=== PATIENT | male | born 1995 | race African-American/Black ===

== ENCOUNTER 2018-03-04 18:51 | Emergency (ER) | payer SELFPAY ==
[2018-03-04] MEDS ORDERED: Ondansetron INJ* 2 MG/ML VIAL IV ONE (19:13)
[2018-03-04] MEDS ORDERED: NS 0.9% 1000 ML* 1,000 ML IV ONE (19:13)
[2018-03-04 19:46] LABS: ABS Basophils 0 10^3/ul (0-0.2); ABS Eosinophils 0 10^3/ul (0-0.6); ABS Lymphocytes 1.1 10^3/ul (1.0-4.8); ABS Monocytes 0.4 10^3/ul (0-0.8); ABS Neutrophils 4.8 10^3/ul (1.5-7.7); ABS Nucleated RBC 0 10^3/ul; Eosinophil % 0 % (0-6); Hematocrit 40 % (42-52); Hemoglobin 13.9 g/dl (14.0-18.0); Lymphocyte % 17.9 % (25-47); Mean Corpuscular HGB Conc 35 g/dl (31-36); Mean Corpuscular Hemoglobin 32 pg (27-31); Mean Corpuscular Volume 91 fL (80-94); Mean Platelet Volume 7.3 fL (7.4-10.4); Nucleated Red Blood Cells % 0; Platelet Count 242 10^3/ul (150-450); Red Blood Count 4.39 10^6/ul (4.00-5.40); Red Cell Distribution Width 13 % (10.5-15); White Blood Count 6.4 10^3/ul (3.5-10.8)
[2018-03-04 20:05] LABS: EGFR Non-African American 132.8 (>60)
--- NOTE | 2018-03-04 20:31 | ED ---
Psychiatric Complaint - HPI Summary HPI Summary: Patient is a 22-year-old male who presents emergency department for a psychiatric evaluation. Patient states he has been drinking alcohol heavily since Sunday and has been having thoughts to harm himself. Patient is a student [employer]. Patient states he is estranged from his family and felt that this week with the holidays coming up. Patient states that he is in his dormitory by himself at school since everyone 1 home for the holiday. Patient states he took 4 extra strength Tylenol this morning around 8:00 with hopes to kill himself. Patient also complains of chest discomfort today. He has no past medical history. Symptoms are moderate in severity. No current modifying factors. Patient denies other drug use today. - History Of Current Complaint Chief Complaint: EDMentalHealth Time Seen by Provider: 03/04/18 18:59 Hx Obtained From: Patient - Allergies/Home Medications Allergies/Adverse Reactions: Allergies Allergy/AdvReac Type Severity Reaction Status Date / Time No Known Allergies Allergy Verified 03/04/18 19:25 Home Medications: Home Medications NK [No Home Medications Reported] 03/04/18 [History Confirmed 03/04/18] PMH/Surg Hx/FS Hx/Imm Hx Previously Healthy: Yes Infectious Disease History: No Infectious Disease History: Denies: Traveled Outside the US in Last 30 Days - Social History Occupation: Student Lives: Dormitory/Roommates Alcohol Use: Weekly Substance Use Type: Reports: None Smoking Status (MU): Never Smoked Tobacco Review of Systems Constitutional: Negative Negative: Fever, Chills Eyes: Negative ENT: Negative Positive: Chest Pain Respiratory: Negative Positive: Abdominal Pain, Nausea. Negative: Vomiting Neurological: Negative Positive: Depressed All Other Systems Reviewed And Are Negative: Yes Physical Exam Triage Information Reviewed: Yes Vital Signs On Initial Exam: Initial Vitals Temp Pulse Resp BP Pulse Ox 98.1 F 85 16 124/65 99 03/04/18 18:52 03/04/18 18:52 03/04/18 18:52 03/04/18 18:52 03/04/18 18:52 Vital Signs Reviewed: Yes Appearance: Positive: Well-Appearing - Pt. sitting up in bed in NAD. Cooperative. Skin: Positive: Warm, Dry Head/Face: Positive: Normal Head/Face Inspection Eyes: Positive: Normal, EOMI Neck: Positive: Supple Respiratory/Lung Sounds: Positive: Clear to Auscultation, Breath Sounds Present Cardiovascular: Positive: Normal, RRR Abdomen Description: Positive: Nontender, Soft Neurological: Positive: Normal, Alert, Oriented to Person Place, Time, CN Intact II-III Psychiatric: Positive: Depressed Diagnostics - Vital Signs Vital Signs Temp Pulse Resp BP Pulse Ox 03/04/18 20:00 18 03/04/18 19:47 17 135/80 03/04/18 19:17 97 21 135/76 100 03/04/18 18:52 98.1 F 85 16 124/65 99 - Laboratory Lab Results: Lab Results 03/04/18 03/04/18 Range/Units 19:40 19:40 WBC 6.4 (3.5-10.8) 10^3/ul RBC 4.39 (4.00-5.40) 10^6/ul Hgb 13.9 L (14.0-18.0) g/dl Hct 40 L (42-52) % MCV 91 (80-94) fL MCH 32 H (27-31) pg MCHC 35 (31-36) g/dl RDW 13 (10.5-15) % Plt Count 242 (150-450) 10^3/ul MPV 7.3 L (7.4-10.4) fL Neut % (Auto) 75.8 (38-83) % Lymph % (Auto) 17.9 L (25-47) % [place] % (Auto) 5.9 (0-7) % Eos % (Auto) 0 (0-6) % Baso % (Auto) 0.4 (0-2) % Absolute Neuts (auto) 4.8 (1.5-7.7) 10^3/ul Absolute Lymphs (auto) 1.1 (1.0-4.8) 10^3/ul Absolute Monos (auto) 0.4 (0-0.8) 10^3/ul Absolute Eos (auto) 0 (0-0.6) 10^3/ul Absolute Basos (auto) 0 (0-0.2) 10^3/ul Absolute Nucleated RBC 0 10^3/ul Nucleated RBC % 0 Sodium 136 (135-145) mmol/L Potassium 4.6 (3.5-5.0) mmol/L Chloride 99 L (101-111) mmol/L Carbon Dioxide 25 (22-32) mmol/L Anion Gap 12 H (2-11) mmol/L BUN 9 (6-24) mg/dL Creatinine 0.75 (0.67-1.17) mg/dL Est GFR ( Amer) 160.7 (>60) Est GFR (Non-Af Amer) 132.8 (>60) BUN/Creatinine Ratio 12.0 (8-20) Glucose 104 H (70-100) mg/dL Calcium 9.4 (8.6-10.3) mg/dL Total Bilirubin 1.10 H (0.2-1.0) mg/dL AST 46 H (13-39) U/L ALT 98 H (7-52) U/L Alkaline Phosphatase 79 (34-104) U/L Troponin I 0.01 (<0.04) ng/mL Total Protein 7.0 (6.4-8.9) g/dL Albumin 4.4 (3.2-5.2) g/dL Globulin 2.6 (2-4) g/dL Albumin/Globulin Ratio 1.7 (1-3) TSH Pending Salicylates Pending Acetaminophen Pending Serum Alcohol Pending Result Diagrams: 03/04/18 19:40 03/04/18 19:40 Lab Statement: Any lab studies that have been ordered have been reviewed, and results considered in the medical decision making process. Course/Dx - Course Course Of Treatment: Patient presenting with depression and suicidal ideations with attempt. He is also complaining of chest discomfort. We'll give patient IV fluids and Zofran. Blood work, EKG and chest x-ray ordered. ECG done at 1953 shows a sinus rhythm of 92 bpm, normal axis, no ST elevation or depression. CXR negative for acute findings. CMP show mild elevation in liver enzymes. U/A shows ketones and rbcs. CXR negative for acute findings. Tylenol level negative. Pt. medically cleared for MHE. 2254: Pt. has been evaluated by therapist and psychiatrist was consulted. Psychiatrist would like to keep pt. in [facility] over night and reassess in the morning. Pt. is talking to one of his friends from school and might be able to go to his friends house for Thanksgiving. Pt. will be signed out to Dr. Adams. - Differential Dx/Clinical Impression Differential Diagnosis/HQI/PQRI: Positive: Alcohol Intoxication, Anxiety, Depression, Drug Overdose/Intentional, Suicidal Ideation, Suicidal Gesture Provider Diagnosis: Depression Discharge - Sign-Out/Discharge Documenting (check all that apply): Sign-Out Patient Signing out patient TO: Roel Adams - Discharge Plan Condition: Stable Referrals: No Primary Care Phys,NOPCP [Primary Care Provider] - - Billing Disposition and Condition Condition: STABLE
[2018-03-04 20:38] LABS: Urine Appearance Cloudy; Urine Blood 1+ (Negative); Urine Color Yellow; Urine Ketones 2+ (Negative); Urine Protein Negative (Negative); Urine Red Blood Cell 1+(3-5/hpf) (Absent); Urine Specific Gravity 1.028 (1.010-1.030); Urine Urobilinogen Negative (Negative); Urine White Blood Cell Trace(0-5/hpf) (Absent)
--- NOTE | 2018-03-05 06:55 | ED ---
Progress - Progress Note Progress Note: Dr. Adams received sign out pending hold. Patient will be signed out from Dr. Adams to Dr. Slater pending hold. - Consult/PCP Time Called: 21:04 Course/Dx - Course Course Of Treatment: Dr. Adams received sign out pending hold. Patient will be signed out from Dr. Adams to Dr. Slater pending hold. - Diagnoses Provider Diagnoses: Depression Discharge - Sign-Out/Discharge Documenting (check all that apply): Sign-Out Patient Signing out patient TO: Rangel Slater - Discharge Plan Condition: Stable Referrals: No Primary Care Phys,NOPCP [Primary Care Provider] - - Attestation Statements Document Initiated by Scribe: Yes Documenting Scribe: Todd Nino Provider For Whom Scribe is Documenting (Include Credential): Roel Adams MD Scribe Attestation: Tdod Mera, scribed for Roel Adams MD on 03/05/18 at 0655.
--- NOTE | 2018-03-05 08:54 | ED ---
Progress - Progress Note Progress Note: This pt was signed out by Dr. Adams at shift change, pending disposition, awaiting mental health hold. Pt had a mental health evaluation and his case was reviewed by Dr. Christy, psychiatrist. Dr. Christy has cleared the pt for discharge. Therefore pt will be discharged home with follow up from his therapist at [facility] with dx depressive disorder. Course/Dx - Diagnoses Provider Diagnoses: Depressive disorder Discharge - Sign-Out/Discharge Documenting (check all that apply): Patient Departure - Discharge home, Receiving Sign-Out Receiving patient FROM: Roel Admas - Discharge Plan Condition: Stable Disposition: HOME Referrals: No Primary Care Phys,NOPCP [Primary Care Provider] - - Billing Disposition and Condition Condition: STABLE Disposition: Home - Attestation Statements Document Initiated by Scribe: Yes Documenting Scribe: Shauna Tabor Provider For Whom Moonibe is Documenting (Include Credential): Rangel Slater MD Scribe Attestation: Shauna Mera scribed for Rangel Slater MD on 03/05/18 at 1802. Scribe Documentation Reviewed: Yes Provider Attestation: The documentation as recorded by the Shauna harrington accurately reflects the service I personally performed and the decisions made by , Rangel Slater MD
--- NOTE | 2018-03-05 09:53 | PN ---
Progress Note - Progress Note Date of Service: 03/05/18 Note: Patient is seen by myself, Amber Esquivel PA-C at 9:15 AM. Subjective: Patient states he is feeling 95% well. He states he is still feeling the effects of alcohol and stating there is still residue in his chest. He denies any chest pain or shortness of breath. He states he is feeling well, no longer depressed, no longer having anxiety and denies any suicidal or homicidal ideations. He states he is feeling safe to be discharged home if thats what the physician agrees to. Denies any pain at this time. Objective: VS stable No change to current medications Alert and cooperative and resting comfortably. Appearance: WDW, comfortable, pleasant, alert Skin: Soft dry skin, no lesions. Eyes: VALDO, EOMI, Conjunctiva pink with no redness or exudates. Neck: Full range of motion. Pulm: Chest symmetrical expansion. No deformities on posterior chest wall. Lungs clear to auscultation and percussion, without adventitious sounds. CV: Heart sounds?RRR, Normal S1 and single S2. No S3, S4, rubs, or murmurs. Musculoskeletal: ROM WNL in all extremities. No deformities noted. Neuro: A&OX3 Psych: Logical, coherent. Denies any suicidal or homicidal ideation. Denies any depression or anxiety at this time. Assessment: Patient has participated in plan with compliance to medications while awaiting assessment. Dx at this time remains suicidal ideation. Plan: Will continue to monitor psych behaviors and need for any medication. Will provide a patient to provider assessment within every 24 hours during stay until safe discharge/transfer/admission plan is established.
--- NOTE | 2018-03-05 14:32 | PN ---
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 The patient has been abusing alcohol but is not intoxicated on presentation. He denies SI and is requesting that a friend come pick him up to spend the Holiday with that person's family. Collateral contact is reviewed and is reassuring. Objective: young male; clean well groomed; euthymic; denies SI or HI Assessment: Alcohol Use DO Plan: Recommend MH and substance abuse follow up on campus. D/C to friend's support. Vital Signs Temp Pulse Resp BP Pulse Ox 98.0 F 65 16 124/61 100 03/04/18 23:39 03/04/18 23:39 03/04/18 23:39 03/04/18 23:39 03/04/18 23:39 Lab Results - Entire Visit 03/04/18 03/04/18 03/04/18 20:16 20:16 19:40 WBC RBC Hgb Hct MCV MCH MCHC RDW Plt Count MPV Neut % (Auto) Lymph % (Auto) [place] % (Auto) Eos % (Auto) Baso % (Auto) Absolute Neuts (auto) Absolute Lymphs (auto) Absolute Monos (auto) Absolute Eos (auto) Absolute Basos (auto) Absolute Nucleated RBC Nucleated RBC % Sodium 136 Potassium 4.6 Chloride 99 L Carbon Dioxide 25 Anion Gap 12 H BUN 9 Creatinine 0.75 Est GFR ( Amer) 160.7 Est GFR (Non-Af Amer) 132.8 BUN/Creatinine Ratio 12.0 Glucose 104 H Calcium 9.4 Total Bilirubin 1.10 H AST 46 H ALT 98 H Alkaline Phosphatase 79 Troponin I 0.01 Total Protein 7.0 Albumin 4.4 Globulin 2.6 Albumin/Globulin Ratio 1.7 TSH 0.98 Urine Color Yellow Urine Appearance Cloudy Urine pH 5.0 Ur Specific Anita 1.028 Urine Protein Negative Urine Ketones 2+ A Urine Blood 1+ A Urine Nitrate Negative Urine Bilirubin Negative Urine Urobilinogen Negative Ur Leukocyte Esterase Negative Urine WBC (Auto) Trace(0-5/hpf) Urine RBC (Auto) 1+(3-5/hpf) A Urine Bacteria Absent Hyaline Casts Present A Urine Sperm Present A Urine Glucose Negative Urine Ascorbic Acid * A Salicylates < 2.50 Urine Opiates Screen None detected Acetaminophen < 15 Ur Barbiturates Screen None detected Ur Phencyclidine Scrn None detected Ur Amphetamines Screen None detected U Benzodiazepines Scrn None detected Urine Cocaine Screen None detected U Cannabinoids Screen None detected Serum Alcohol < 10 03/04/18 19:40 WBC 6.4 RBC 4.39 Hgb 13.9 L Hct 40 L MCV 91 MCH 32 H MCHC 35 RDW 13 Plt Count 242 MPV 7.3 L Neut % (Auto) 75.8 Lymph % (Auto) 17.9 L [place] % (Auto) 5.9 Eos % (Auto) 0 Baso % (Auto) 0.4 Absolute Neuts (auto) 4.8 Absolute Lymphs (auto) 1.1 Absolute Monos (auto) 0.4 Absolute Eos (auto) 0 Absolute Basos (auto) 0 Absolute Nucleated RBC 0 Nucleated RBC % 0 Sodium Potassium Chloride Carbon Dioxide Anion Gap BUN Creatinine Est GFR ( Amer) Est GFR (Non-Af Amer) BUN/Creatinine Ratio Glucose Calcium Total Bilirubin AST ALT Alkaline Phosphatase Troponin I Total Protein Albumin Globulin Albumin/Globulin Ratio TSH Urine Color Urine Appearance Urine pH Ur Specific Anita Urine Protein Urine Ketones Urine Blood Urine Nitrate Urine Bilirubin Urine Urobilinogen Ur Leukocyte Esterase Urine WBC (Auto) Urine RBC (Auto) Urine Bacteria Hyaline Casts Urine Sperm Urine Glucose Urine Ascorbic Acid Salicylates Urine Opiates Screen Acetaminophen Ur Barbiturates Screen Ur Phencyclidine Scrn Ur Amphetamines Screen U Benzodiazepines Scrn Urine Cocaine Screen U Cannabinoids Screen Serum Alcohol
[2018-03-05 17:42] VITALS: BP 139/114
== END 2018-03-05 17:41 | disposition home or self-care (01) ==
LOC: ED 18:51
DX: F32.9 Major depressive disorder, single episode, unspecified (principal)
CPT/HCPCS: 36415; 71045; 80053; 80307; 80320; 80329; 81003; 81015; 84443; 84484; 85025; 87086; 93005; 96374; 99284; G0480; J2405

== ENCOUNTER 2018-04-20 18:25 | Inpatient (IN) | payer OTHER ==
--- NOTE | 2018-04-20 19:16 | ED ---
Psychiatric Complaint - HPI Summary HPI Summary: The patient is a 23 y/o M presenting to [facility] accompanied by a friend with a chief complaint of SI starting in February 2018 with worsening over the past few weeks. He states that around this past Thanksgiving his symptoms of depression started as he was alone at school, [employer], because he was unable to go home to his family in [place]. He reports that his family ' disowned' him in 2017 because he revealed his sexual orientation and decided he wanted to stray from his Rastaf[place]/Afghan cheondoism and culture that his family followed. This also led to an experience in which he was sent to [facility] to be killed, but he luckily escaped through the [place] [employer]. At the time that the depression started to affect him, he presented to [facility], where he was admitted for depression to [facility] for approximately a day. He was going to stay longer, but he was able to go home with a friend for the rest of the break. Over the past few weeks, he has been on winter break from school, and his symptoms have returned since he has been alone in his dorm room. He has been drinking EtOH frequently, especially over the past few days. He states he used to drink to cope with his problems, but he now drinks more to harm himself. He denies use of any other substances, and he doesn't have any other plans of SI. He additionally c/o upper-sternal pain similar to heartburn and dehydration due to increased EtOH intake. He denies HI. He has hx of h pylori that was treated with abx. - History Of Current Complaint Chief Complaint: EDMentalHealth Time Seen by Provider: 04/20/18 19:04 Hx Obtained From: Patient Onset/Duration: Gradual Onset, Lasting Weeks - starting in February 2018, Still Present, Worse Since - the past few weeks Timing: Weeks Severity Initially: Mild Severity Currently: Moderate Character: Depressed Aggravating Factor(s): Other - being alone Alleviating Factor(s): Other - being around others Associated Signs And Symptoms: Positive: Appetite Change - decreased intake Has Suicidal: Reports: Thoughts. Denies: With A Plan Has Homicidal: Denies: Thoughts - Allergies/Home Medications Allergies/Adverse Reactions: Allergies Allergy/AdvReac Type Severity Reaction Status Date / Time No Known Allergies Allergy Verified 03/04/18 19:25 PMH/Surg Hx/FS Hx/Imm Hx Endocrine/Hematology History: Denies: Hx Diabetes Respiratory History: Denies: Hx Asthma GI History: Reports: Other GI Disorders - h pylori Sensory History: Denies: Hx Deafness Opthamlomology History: Reports: Hx Contacts or Glasses Denies: Hx Legally Blind EENT History: Denies: Hx Deafness Psychiatric History: Reports: Hx Depression Denies: Hx Eating Disorder, Hx of Violent Episodes Against Others - Surgical History Surgery Procedure, Year, and Place: none Infectious Disease History: No Infectious Disease History: Denies: Traveled Outside the US in Last 30 Days - Family History Known Family History: Positive: Hypertension - father, Renal Disease - mother, Respiratory Disease - asthma in sister - Social History Occupation: Student Lives: Dormitory/Roommates Alcohol Use: Weekly Hx Substance Use: No Substance Use Type: Reports: None Hx Tobacco Use: No Smoking Status (MU): Never Smoked Tobacco Review of Systems Positive: Chest Pain - heart burn upper chest Positive: Shortness Of Breath Positive: Depressed, Other - POSITIVE: SI without a plan; NEGATIVE: HI All Other Systems Reviewed And Are Negative: Yes Physical Exam - Summary Physical Exam Summary: Appearance: Well-appearing, Well-nourished, lying in bed comfortable Skin: Warm, dry, no obvious rash Eyes: sclera anicteric, no conjunctival pallor ENT: mucous membranes moist Neck: deferred Respiratory: No signs of respiratory distress Cardiovascular: Appears well perfused, pulses are nml Abdomen: deferred Musculoskeletal: Moving all 4 extremities without obvious discomfort Neurological: Awake and alert, mentation is normal, speech is fluent and appropriate Psychiatric: affect is normal, does not appear anxious or depressed Triage Information Reviewed: Yes Vital Signs On Initial Exam: Initial Vitals Temp Pulse Resp BP Pulse Ox 98.8 F 90 16 129/63 99 04/20/18 18:27 04/20/18 18:27 04/20/18 18:27 04/20/18 18:27 04/20/18 18:27 Vital Signs Reviewed: Yes Diagnostics - Vital Signs Vital Signs Temp Pulse Resp BP Pulse Ox 04/20/18 18:27 98.8 F 90 16 129/63 99 - Laboratory Result Diagrams: 04/20/18 18:39 04/20/18 18:39 Lab Statement: Any lab studies that have been ordered have been reviewed, and results considered in the medical decision making process. Course/Dx - Course Course Of Treatment: The patient is a 23 y/o M presenting to [facility] accompanied by a friend with a chief complaint of SI starting in February 2018 with worsening over the past few weeks because he has been alone and unable to go home. He reports that his family 'disowned' him in 2016 because he revealed his sexual orientation and decided he wanted to stray from his [place]astaf[place] cheondoism and culture that his family followed. This also led to an experience in which he was sent to [facility] to be killed, but he luckily escaped through the [place] [employer]. At the time that the depression started to affect him, he presented to [facility], where he was admitted for depression to [facility] for only a day because he was able to go home with a friend. His symptoms have returned since he has been alone in his dorm room over this winter break. EtOH intake has increased over past few days; he states he used to drink to cope with his problems, but he now drinks more to harm himself. He denies use of any other substances, and he doesn 't have any other plans of SI. He additionally c/o upper-sternal pain similar to heartburn and dehydration due to increased EtOH intake. He has hx of h pylori that was treated with abx. Upon physical exam, the patient exhibits no acute abnormalities. In the ED course, the pt was given Ativan, Pepcid, Maalox, Lidocaine, and Nicotine. Blood work reveals elevated AST and ALT. UA reveals elevated RBCs and bacteria. Toxicology reveals EtOH of 187. Mental health group work program director Lianna Casillas reports that the patient will be admitted to [facility] with a diagnosis of depression on voluntary basis under the care of Dr. Jung, psychiatry. Patient agrees with this plan and understands the need for admission at this time. - Differential Dx/Clinical Impression Provider Diagnosis: Depression Discharge - Sign-Out/Discharge Documenting (check all that apply): Patient Departure - Patient will be admitted to [facility] for further care by Dr. Jung. - Discharge Plan Condition: Stable Disposition: PSYCHIATRIC FACILITY-[facility] Referrals: No Primary Care Phys,NOPCP [Primary Care Provider] - - Billing Disposition and Condition Condition: STABLE Disposition: Psychiatric Facility [facility] - Attestation Statements Document Initiated by Moonibe: Yes Documenting Scribe: Zunilda Wilson Provider For Whom Scribe is Documenting (Include Credential): MD Moon Owensibe Attestation: I, Zunilda Wilson, scribed for Dr. Jose Roldan MD on 04/21/18 at 0419. Scribe Documentation Reviewed: Yes Provider Attestation: The documentation as recorded by the moonibe, Zunilda Wilson accurately reflects the service I personally performed and the decisions made by me, Dr. Jose Roldan MD Status of Scribe Document: Viewed
[2018-04-20] MEDS ORDERED: Nicotine Inhaler* 10 MG AMP INH PRN (19:20)
[2018-04-20] MEDS ORDERED: Lidocaine 2% VISCOUS* 15 ML UDC PO ONE (19:21)
[2018-04-20] MEDS ORDERED: Famotidine TAB* 20 MG PO ONE (19:21)
[2018-04-20] MEDS ORDERED: Al Hydrox/Mg Hydrox/Simet LIQ* 30 ML UDC PO ONE (19:21)
[2018-04-20 19:35] LABS: Urine Appearance Clear; Urine Bacteria 1+ (Absent); Urine Bilirubin Negative (Negative); Urine Blood 1+ (Negative); Urine Color Yellow; Urine Glucose Negative (Negative); Urine Ketones Negative (Negative); Urine Nitrite Negative (Negative); Urine Protein Negative (Negative); Urine Red Blood Cell 2+(6-10/hpf) (Absent); Urine Specific Gravity 1.024 (1.010-1.030); Urine Urobilinogen Negative (Negative); Urine White Blood Cell Trace(0-5/hpf) (Absent)
[2018-04-20 19:37] LABS: ABS Basophils 0 10^3/ul (0-0.2); ABS Eosinophils 0 10^3/ul (0-0.6); ABS Lymphocytes 1.8 10^3/ul (1.0-4.8); ABS Monocytes 0.3 10^3/ul (0-0.8); ABS Neutrophils 2.9 10^3/ul (1.5-7.7); ABS Nucleated RBC 0 10^3/ul; Eosinophil % 0 %; Hematocrit 43 % (42-52); Hemoglobin 14.8 g/dl (14.0-18.0); Lymphocyte % 35.4 %; Mean Corpuscular HGB Conc 34 g/dl (31-36); Mean Corpuscular Hemoglobin 31 pg (27-31); Mean Corpuscular Volume 92 fL (80-94); Nucleated Red Blood Cells % 0.1; Platelet Count 303 10^3/ul (150-450); Red Blood Count 4.72 10^6/ul (4.00-5.40); Red Cell Distribution Width 13 % (10.5-15); White Blood Count 5.1 10^3/ul (3.5-10.8)
[2018-04-20 19:47] LABS: Barbiturates Urine Screen None Detected (None Detect); Benzodiazepine Urine Screen None Detected (None Detect); Urine Cannabinoids Screen None Detected (None Detect)
[2018-04-20 19:56] LABS: Albumin 4.7 g/dL (3.2-5.2); Albumin/Globulin Ratio 2.1 (1-3); EGFR Non-African American 127.5 (>60); Globulin 2.2 g/dL (2-4); Potassium 3.8 mmol/L (3.5-5.0); Total Bilirubin 0.6 mg/dL (0.2-1.0); Total Protein 6.9 g/dL (6.4-8.9)
[2018-04-21] MEDS ORDERED: Al Hydrox/Mg Hydrox/Simet LIQ* 30 ML UDC ONE (05:49)
[2018-04-21] MEDS: Al Hydrox/Mg Hydrox/Simet LIQ* 30 ML UDC PO PRN (06:10)
[2018-04-21] MEDS ORDERED: Acetaminophen TAB* 325 MG PO PRN (06:13)
[2018-04-21] MEDS: Vitamin THERAPEUTIC TAB PO SCH (07:52)
--- NOTE | 2018-04-21 20:40 | HP ---
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 This is his first lifetime psychiatric hospitalization. CHIEF COMPLAINT: "I have been trying to kill myself by drinking a lot." HISTORY OF PRESENT ILLNESS: This 23-year-old -Singaporean male with no prior history of treatment for mental illness, came to the emergency room on a voluntary status accompanied by a friend and seeking help for intensified suicidal thoughts and attempt by drinking excessively. 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 Magnus reports that in 2017 after his family came to know that he was a claudio, they allowed him to go to [facility] for a summer vacation, but with an intent to convert him to a straight man. One of his brothers even told him that if he did not revert back to a straight man, they are going to take him to a [place] and ask them to kill him. He got frightened, ran away from the hotel where they were staying and came back to the [place] with the help of his friends as well as [place] [employer] in [facility]. Since then, he did not have any contact with his family except for 1 sister. His family disowned him and does not have anything to do with him. Magnus also reports that he has given up his protestant, which is Lutheran, and does not identify with the protestant anymore; that was another reason that his family does not have anything to do with him. All these things has been on his mind a lot causing a lot of stress and flashbacks and nightmares from whatever has happened to him in 2017. He also felt disappointed, sad, unmotivated, helpless, and hopeless intermittently. Things have gotten worse since the winter vacation started. He was alone in the dorm, had a lot of time to think about his trauma. In an attempt to cope with that, he started drinking excessively to a point that he was about to kill himself. However, he disclosed his desire to one of his friends, who came in, picked him up, and brought him to the emergency room for help. Magnus also reports that there are times that when he is about to fall asleep, he hears his mother's voice. It was also reported to the pulp roller that his mother's voice was telling him that he should kill himself. PAST PSYCHIATRIC HISTORY: Unremarkable. He may have gone for a therapy appointment at [facility], however, was never treated for mental illness or substance abuse. PHYSICAL HEALTH: Magnus appears to be physically healthy other than mild GI problem, which could be related to excessive drinking and not eating enough. He denies any chronic or acute physical health condition. ALLERGIES: No known drug allergies. FAMILY HISTORY: Magnus's family is an immigrant from [place], who lives in [place]. SOCIAL HISTORY: After graduating from high school, Magnus came to to study History. He reports his grades are fine. He also reports that he has been experiencing some financial problems since his family has not been supporting him, however, he has a female professor at , who kind of adopted him and supports him emotionally as well as financially. 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 He is not in any kind of significant relationship, although he identifies himself as a claudio man. PHYSICAL EXAMINATION GENERAL: Magnus is average height, average weight, black male, appears to be of his stated age and not in any acute physical distress. VITAL SIGNS: His vitals show a blood pressure of 129/63, pulse 90, respirations 16, temperature 98.8, and pulse ox 99% on room air. HEENT: Head: Atraumatic and normocephalic. Face: Within normal limit with facial hair. Oral cavity: Clean, full dentition, normal pharynx. Eyes: PERRLA, EOMI x2. Clear conjunctivae bilaterally. Nose: Within normal limits. NECK: Supple with midline trachea. No adenopathy/thyromegaly. CHEST: Good and equal air entry bilaterally without any wheezing or crackles. CVS: Heart rate regular, S1 and S2 only. No gallops or murmurs. ABDOMEN: Soft, nontender. No organomegaly. Positive bowel sounds in all 4 quadrants. MUSCULOSKELETAL: Within normal limits. RECTAL: No genitourinary exam or rectal exam done. NEUROLOGIC: Within normal limits with grossly intact cranial nerves II through XII. No sensory deficits appreciated. MENTAL STATUS EXAMINATION: This is an average-height, average-weight, - [place]an male, who is wearing hospital provided paper gowns. His personal hygiene and grooming is fair. Makes good eye contact. Speech is normal in all spheres. Describes his mood as "okay." Observed affect appears to be somewhat constricted. Thought process is logical and goal-directed. Thought content is devoid of any delusions. At this time, denies any suicidal ideation, although he came to the emergency room reporting that he has been trying to kill himself by drinking excessively. He denies any homicidal ideations, hallucinations or delusions. His intelligence appears to be average as evidenced by his educational background, vocabulary, and fund of knowledge. Memory functions are intact in all spheres. Insight and judgment appears to be poor. DIAGNOSTIC STUDIES/LAB DATA: Labs show a WBC count of 5.1, hemoglobin 14.8, hematocrit 43, platelet count 303. Serum sodium level 139, potassium 3.8, chloride 104, carbon dioxide 24, BUN 10, creatinine 0.77. His blood alcohol level was high, it was 187 in the emergency room. Rest of the tox screen was negative for street drugs. 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 His history is significant for some emotional trauma from his family due to his sexual orientation of being a claudio man. He has been experiencing emotional turmoil including flashbacks and nightmares. It is difficult to understand at this time his depressive symptoms, are they related to a major mood disorder or his drinking. DIAGNOSTIC IMPRESSION: Mental Health Diagnoses: 1. Unspecified depressive disorder, rule out major depressive disorder, rule out posttraumatic stress disorder. 2. Alcohol use disorder, rule out substance-induced depression. Physical Health Diagnosis: None. TREATMENT/RECOMMENDATIONS: Magnus will remain hospitalized on Behavioral [facility] Unit for his safety, diagnostic clarification, and stabilization of his acute symptoms after the diagnostic clarification is complete. His code status will remain full. Supportive milieu, individual and group therapy will be initiated. At this time, I will defer any psychopharmacological intervention for the diagnostic clarification and defer it to the assigned psychiatrist on the unit. He was made aware of the treatment plan and he was fine with that. [id number]/[facility] #: [id number] MTDD
[2018-04-22] MEDS: Vitamin THERAPEUTIC TAB PO SCH (09:06)
--- NOTE | 2018-04-22 16:11 | PN ---
Subjective - Subjective Date of Service: 04/22/18 Service Type: 69328 Hosp care 25 min moderate complexity Subjective: Magnus states the trauma has caught up with him. That he can't go back to his family is a large stressor. Although he has largely come to terms with the facts of his ordeal in [place], the emotional implications contiinue to be felt. In addition to that memory, he has been informed by the FBI that it is not safe for him to return home to [place] because the [place] community is against him. This complicates his feelings of being abandoned by his family. The distress that he feels comes only in times when he is alone. This precipitates poor coping strategies such as isolating even more and drinking large quantities of vodka and rum. 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 He states his sleep is poor, especially with alcohol. He also states that when he is sleeping, he can hear and feel and interact. He also has initial insomnia. He states he has had problems with drinking alcohol in the past. Now that he is 23 and can purchase his own alcohol, he is less constrained. In the past his friends refused to give him alcohol. Objective - Appearance Appearance: Healthy Appearing Dysmorphic Features: No Hygiene: Normal Grooming: Fairly Well Kept - Behavior Psychomotor Activities: Normal Exhibits Abnormal Movement: No - Attitude and Relatedness Attitude and Relatedness: Cooperative Eye Contact: Good - Speech Quality: Unpressured Latencies: Normal Quantity: Appropriate - Mood Patient's Decription of Mood: "Fine" - Affect Observed Affect: Good Affect Consistent with: Euthymia - Thought Process Patient's Thought Process: Coherent Thought Content: Yes Passive Wish, No Suicidal Planning, No Homicidal Ideation, No Paranoid Ideation - Sensorium Experiencing Hallucinations: No, Sensorium is Clear Type of Hallucinations: Visual: No, Auditory: No, Command: No - Level of Consciousness Level of Consciousness: Alert Orientation: Yes Intact, Yes Orientated to Time, Yes Orientated to Place, Yes Orientated to Person - Impulse Control Impulse Control: Tenuous - Insight and Judgement Insight and Judgement: Fair - Group Participation Particating in Group Activities: No - Medication Management Medication Management Adherence: Yes Assessment - Assessment Merits Inpatient Hospitalization: For Immediate Safety, For Stabilization, For Discharge Planning Inpatient DSM-V Dx: F43.23 Clinical Impression: Magnus is a 23-year-old [place] man from [place] who is brought to the hospital by car after realizing he is alone and that he wanted to suicide by drinking himself to with alcohol. Plan - Plan Treatment Plan: Name: MAGNUS GUERRA Birthdate: 1995 [id number] Continued Medication Management: Start Medication Medications: Current Medications Acetaminophen (Tylenol Tab*) 650 mg PO Q4H PRN PRN Reason: PAIN or TEMP > 101 F Al Hydrox/Mg Hydrox/Simethicone (Maalox Plus*) 30 ml PO Q4H PRN PRN Reason: INDIGESTION Last Admin: 04/21/18 06:10 Dose: 30 ml Lorazepam (Ativan Tab(*)) 1 mg PO Q4H PRN PRN Reason: ANXIETY Multivitamins (Theragran Tab*) 1 tab PO DAILY TING Last Admin: 04/22/18 09:06 Dose: Not Given Nicotine (Nicotine Inhaler*) 10 mg INH Q2H PRN PRN Reason: CRAVING - Discharge Plan Discharge Plan: Outpatient Follow Up Additional Comments: Magnus will start mirtazapine 7.5 mg and Wellbutrin XL 150 mg in the morning.
[2018-04-22] MEDS: Al Hydrox/Mg Hydrox/Simet LIQ* 30 ML UDC PO PRN (20:43)
[2018-04-22] MEDS: LORazepam TAB(*) 1 MG PO PRN (22:50)
[2018-04-23] MEDS: Vitamin THERAPEUTIC TAB PO SCH (08:42)
[2018-04-23] MEDS: BuPROPion XL* 150 MG TAB.XL PO SCH (10:06)
--- NOTE | 2018-04-23 11:42 | PN ---
[facility]: Group Therapy Note - Service Type Service Type: 28964 Group Psychotherapy - Cognitive Behavioral Group Therapy ( CBT):Patient was attentive and participatory in CBT programming this morning, and remained in good behavioral control. Patient expressed positive insights regarding relevant treatment interventions and goals.
--- NOTE | 2018-04-23 14:37 | PN ---
Subjective - Subjective Date of Service: 04/23/18 Service Type: 17126 Hosp care 15 min low complexity Subjective: Magnus is doing well today. He reports feeling good and ready to leave now that he knows that he's been accepted at [facility]. He states he 's ready to leave tonight, in fact. He will, instead, work on the [employer] and organize where he will stay until his friends return to campus. it is clear that his trigger is being alone and seeing no one around him. Both episodes that led him to the hospital were during breaks at school. He is no longer interested in taking medication for depression since the medication did not instantly make him more attentive. We will use the prazosin trial over night as he has routinely had trouble sleeping due to vivid dreams. Incidentally, these dreams went away when he took Ativan over night. Objective - Appearance Appearance: Healthy Appearing Dysmorphic Features: No Hygiene: Normal Grooming: Fairly Well Kept - Behavior Psychomotor Activities: Normal Exhibits Abnormal Movement: No - Attitude and Relatedness Attitude and Relatedness: Cooperative Eye Contact: Good - Speech Quality: Unpressured Latencies: Normal Quantity: Appropriate - Mood Patient's Decription of Mood: "Good" - Affect Observed Affect: Good Affect Consistent with: Euthymia - Thought Process Patient's Thought Process: Coherent Thought Content: No Passive Wish, No Suicidal Planning, No Homicidal Ideation, No Paranoid Ideation - Sensorium Experiencing Hallucinations: No, Sensorium is Clear Type of Hallucinations: Visual: No, Auditory: No, Command: No - Level of Consciousness Level of Consciousness: Alert Orientation: Yes Intact, Yes Orientated to Time, Yes Orientated to Place, Yes Orientated to Person - Impulse Control Impulse Control: Intact - Insight and Judgement Insight and Judgement: Fair - Group Participation Particating in Group Activities: Yes - Medication Management Medication Management Adherence: Yes Assessment - Assessment Inpatient DSM-V Dx: F43.23 Clinical Impression: Magnus is a 23-year-old [place] Island[place]French man from [place] who is brought to the hospital by car after realizing he is alone and that he wanted to suicide by drinking himself to with alcohol. Plan - Plan Treatment Plan: Name: MAGNUS GUERRA Birthdate: 1995 [id number] Medications: Current Medications Acetaminophen (Tylenol Tab*) 650 mg PO Q4H PRN PRN Reason: PAIN or TEMP > 101 F Al Hydrox/Mg Hydrox/Simethicone (Maalox Plus*) 30 ml PO Q4H PRN PRN Reason: INDIGESTION Last Admin: 04/22/18 20:43 Dose: 30 ml Bupropion HCl (Wellbutrin Xl *) 150 mg PO DAILY TING; Protocol Last Admin: 04/23/18 10:06 Dose: 150 mg Lorazepam (Ativan Tab(*)) 1 mg PO Q4H PRN PRN Reason: ANXIETY Last Admin: 04/22/18 22:50 Dose: 1 mg Multivitamins (Theragran Tab*) 1 tab PO DAILY TING Last Admin: 04/23/18 08:42 Dose: 1 tab Nicotine (Nicotine Inhaler*) 10 mg INH Q2H PRN PRN Reason: CRAVING Prazosin HCl (Minipress Cap*) 1 mg PO BEDTIME TING - Discharge Plan Additional Comments: Magnus will start mirtazapine 7.5 mg and Wellbutrin XL 150 mg in the morning. Mirtazapine was not started last night. Prazosin will start tonight at 1 mg. His professor would like to have a conversation with me, too. I will phone her tomorrow.
[2018-04-23] MEDS ORDERED: Prazosin CAP* 1 MG PO SCH (21:00)
[2018-04-23] MEDS: LORazepam TAB(*) 1 MG PO PRN (22:52)
[2018-04-24 08:07] VITALS: BP 115/72
[2018-04-24] MEDS: Vitamin THERAPEUTIC TAB PO SCH (09:51)
[2018-04-24] MEDS: BuPROPion XL* 150 MG TAB.XL PO SCH (09:51)
[2018-04-24] MEDS ORDERED: Naltrexone INJ 380 MG IM ONE (12:30)
--- NOTE | 2018-04-24 15:10 | CONS ---
PSYCHOLOGICAL REPORT: DATE OF CONSULT: 04/24/18 PROCEDURE CODE: [id number] REASON FOR REFERRAL: Magnus was referred for personality testing secondary to concerns regarding severity of depression and possible lethality as well as characterological vulnerabilities consistent with [place] II diagnoses. TESTS ADMINISTERED: Magnus complete the [place] Multiphasic Personality Inventory- 2 (MMPI-2). He was given feedback in individual conversation regarding test results and clinical progress and was also seen in the context of cognitive behavioral group psychotherapy on repeated occasions in a group led by this comic writer. 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 He currently anticipates possibly pursuing a career in law and discussed his interest in various political science classes as well. This is his first inpatient hospitalization. He describes drinking excessively prior to admission as a means of killing himself. Magnus describes struggling with depression since he came out to his family in regards to being claudio. Apparently, he began this process in 2017 and this was met with very strict familial and cultural expectations regarding personal conduct. His family has not been accepting of his orientation, either in regards to sexuality or him being an atheist. He describes how his family felt that this would reflect poorly not only him but on their family as a whole and that he is not welcome now in his family home or indeed in any [place] cultural centers. Magnus was somewhat dysphoric in describing how his coming out process has led to this very strict sense of alienation, both in regards to his family as well as in regards to access to his identified cultural interests and activities. He describes being very fond of his grayling [place], but currently is disinclined to return there for fear for safety. Magnus describes somewhat inconsistent adjustment to [place], [place], although he describes having very supportive experience socially and emotionally at [employer]. He describes a preference for metropolitan places, describing difficulties adjusting culturally to life in [place], [place]; especially, describing how he is often the only black man in the room. He finds this somewhat disconcerting still, although he has now been in [place] for 3 years. Magnus describes prosocial goals and interest to career development and future plans. He describes a preference for larger metropolitan areas, describing being anxious to find employment in a larger city, but is open to the possibility of landing a job in academia at [employer]. Magnus currently presents with good affect and is spontaneous in conversation and well related to both staff as well as peers. He initially presented as rather withdrawn and quiet, but currently was able to describe his apprehensions about initial impressions of psychiatric patients. He then described how pleasantly surprised and relieved he was to see that other people had very similar problems and difficulties and found the group topics to be very relatable and of interest. Magnus impresses as a very good candidate to benefit from insight-oriented psychotherapies and described looking forward to engagement in outpatient process at [facility] in [place]. He does not present with any psychotic range difficulties or affect disturbances consistent with bipolar disorders. TEST RESULTS: Magnus provides a very distressed profile of his administration of the MMPI-2, having elevated all 3 emotional duress scales on the validity indices to a profound degree with T-scores ranging between 100 and 120. This consequently leaves him to endorse a "floating profile" where he elevates all clinical indices except the masculine/feminine scale as well as the hypomania and social introversion scales. Although his depression scale remains quite elevated, it is the lowest clinical elevation on his profile. His anger scales are the most profoundly elevated with psychopathic deviant paranoia obtaining T- scores between 100 and 105. Discussion addressed a sense of anger and alienation, both in regards to family difficulties as well as his perceptions of being frankly mistreated regarding recent experiences in [place] and feeling unsafe. Other elevation is consistent with psychotic range symptom endorsement are felt to be consistent with feelings of alienation and detachment from emotional nurturance and support. His profile is often consistent with characterological vulnerabilities with borderline personality function, although he does not impress as meeting criteria for this as a diagnosis, but instead may experience intrusive posttraumatic stress disorder type symptomatology, which leads to exacerbation of symptomatology. IMPRESSIONS AND RECOMMENDATIONS: Ongoing outpatient therapy should continue to address the aforementioned incidence which occurred in [facility] where he was compelled to attend a conversion therapy camp of some sort while in [facility]. He describes how he felt threatened in terms of safety and wellbeing and described how "I can never return to [facility] or [facility]." He also holds this attitude in regards to dealing with his family or him returning to [place]. Magnus described having been arrested on 1 occasion secondary to a family dispute involving his sister. He otherwise describes how other people cannot disturb him to that point of agitation. Although this topic was broached in conversation here, it is very clear that this continues to exert a very profound effect on his sense of wellbeing as well as his sense of self- identity. Continuing treatment should address this as an ongoing concern. Diagnostic impression is consistent with posttraumatic stress difficulties while including a major depressive episode, moderate without psychosis. Also, his alcohol use should be included in ongoing discussion of clinical issues. [id number]/[facility] #: [id number] TIKI
--- NOTE | 2018-04-24 23:52 | DS ---
CC: [facility]; [facility] * DISCHARGE SUMMARY: DATE OF ADMISSION: 04/21/18 DATE OF DISCHARGE: 04/24/18 PROVIDER: Teena Peetrson NP, in Psychiatry. SUPERVISING PHYSICIAN: Dr. Jt Christy.* (DICTATED BY TEENA PETERSON NP ) DIAGNOSES: [place] I: Posttraumatic stress disorder and adjustment disorder. [place] II: Rule out cluster B disorders. CONDITION AT THE TIME OF DISCHARGE: Magnus is improved. He is psychiatrically cleared, stable. He participated in some groups, was social with peers. His support system is agreeable to his discharge as is Magnus. He has done well here psychiatrically. He tolerated the addition of Wellbutrin and prazosin. He will be attending [facility]. MENTAL STATUS EXAM AT THE TIME OF DISCHARGE: Magnus is calm, cooperative, and makes good eye contact. He is alert and oriented x3. His grooming is adequate. His speech pace is normal. His thought processes are logical. He is not psychotic or delusional. He denies AH, VH, SI, and HI. His insight is fair. His judgment is good. He is willing to follow up and he is urged to see a therapist, which he has agreed to do. DISCHARGE INSTRUCTIONS TO THE PATIENT: A. Medications: 1. Wellbutrin XL 150 mg daily, dispensed 30 tablets. 2. Prazosin 1 mg at bedtime, dispensed 30 capsules; these go to [facility]. B. Diet: Regular. C. Activities: As tolerated. Magnus is a nonsmoker. There are no studies pending at the time of discharge. D. Followup care: He has an appointment with [facility] on 04/25/18 at no, [facility] on 04/29/18 at 10 a.m. as well as on 05/03/18 at 11 a.m. E. Substance abuse followup is not indicated. HOSPITAL COURSE: Part A. Chief Complaint: "I have been trying to kill myself by drinking a lot." This 23-year-old [place] male with no prior history of treatment for mental illness, came to the emergency room on a voluntary status accompanied by a friend and seeking help for intensified suicidal thoughts and attempt by drinking excessively. 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 Magnus reports that in 2017 after his family came to know that he was a claudio, they allowed him to go to [facility] for a summer vacation, but with an intent to convert him to a straight man. One of his brothers even told him that if he did not revert back to a straight man, they are going to take him to a [place] and ask them to kill him. He got frightened, ran away from the hotel where they were staying and came back to the [place] with the help of his friends as well as the [place] [employer] in [facility]. Since then, he did not have any contact with his family except for 1 sister. His family disowned him and does not have anything to do with him. Magnus also reports that he has given up his cheondoism, which is Restorationism, and does not identify with the cheondoism anymore, that was another reason that his family does not have anything to do with him. All these things have been on his mind a lot causing a lot of stress and flashbacks and nightmares from whatever has happened to him in 2017. He also felt disappointed, sad, unmotivated, helpless, and hopeless intermittently. Things have gotten worse since the winter vacation started. He was alone in the dorm, had a lot of time to think about his trauma. In an attempt to cope with that, he started drinking excessively to a point that he was about to kill himself. However, he disclosed his desire to one of his friends, who came in, picked him up, and brought him to the emergency room for help. Magnus also reports that there are times that when he is about to fall asleep that he hears his mother's voice. It was also reported to the slp teacher that his mother's voice was telling him that he should kill himself. Part B. Psychiatric treatment was rendered. Magnus was admitted to the adult behavioral unit and placed on 15-minute checks for safety. He did well on the unit, went to some groups. He interacted with many peers well. We started Wellbutrin and prazosin and he tolerated those medications well. He was disappointed that the Wellbutrin did not immediately have an antidepressive or focusing effect. Once of his hopes is that he will receive medication to help him focus, that was the reason for choosing Wellbutrin over another antidepressant: He has high anxiety and a stimulant would be counterproductive. He is not on an antipsychotic. We did meet with his caregiver, Kamilah, who was allowing him to stay him in her house for the week until he gets back to college. Because he has a complicated past and his presentation is not completely clear, we did some psychological testing for Magnus and the data there can be found in Dr. Tommy Bansal's report. He is improved. He is no longer suicidal. He states that he is much better when he is with other people. This is so distinctly true for him that I considered not giving him antidepressant for when he is out in the world. However, because he wanted a safety net and he wanted something to help him focus, Wellbutrin was chosen. Prazosin was given to him at bedtime to reduce the intensity of the dreams that he was having. He did not report nightmares specifically to me but he did report interrupted sleep and difficulty staying asleep. He will be going to [facility]. TEENA PETERSON, RUDY [id number]/[facility] #: [id number] TIKI
== END 2018-04-24 12:55 | disposition home or self-care (01) | DRG 755 ==
LOC: ED 18:25 → BSU 04-21 05:07
PROVIDERS: ADMIT Psychiatry & Neurology Psychiatry; ATTEND Psychiatry & Neurology Psychiatry
DX: F43.10 Post-traumatic stress disorder, unspecified (principal); R45.851 Suicidal ideations; F43.23 Adjustment disorder with mixed anxiety and depressed mood
CPT/HCPCS: 36415; 80053; 80307; 80320; 81003; 81015; 85025; 87086; 90853; 96130; 99222; 99231; 99232; 99238; 99285; A9270-GY; G0480; J2315

== ENCOUNTER 2018-12-31 04:57 | Emergency (ER) | payer OTHER ==
[2018-12-31] MEDS ORDERED: LORazepam TAB(*) 1 MG PO ONE (05:52)
[2018-12-31] MEDS ORDERED: Famotidine TAB* 20 MG PO ONE (05:52)
--- NOTE | 2018-12-31 05:56 | ED ---
Shortness of Breath - HPI Summary HPI Summary: 23-year-old male presents with shortness of breath for the the past couple days. He states he can't sleep due to his sob. He states he believes that it is due to taking adderall. He has been on the dose for several month. He states that when she lies down he feels like he needs to burp and he can't catch his breath. His heart is racing. He also admits to lower abdominal pain. He admits to urinary symptoms. No fevers or chills. States feels like something is stuck in his throat. No chest pain. No sinus congestion. No recent travel. Nonsmoker. No drug use. no family history of blood clots. He admits to nausea but no vomiting. Has history of acid reflux. - History of Current Complaint Chief Complaint: EDShortnessOfBreath Time Seen by Provider: 12/31/18 05:40 - Allergy/Home Medications Allergies/Adverse Reactions: Allergies Allergy/AdvReac Type Severity Reaction Status Date / Time No Known Allergies Allergy Verified 12/31/18 04:59 Home Medications: Home Medications Dextroamphetamine/Amphetamine [Amphetamine/Dextroampheta 30 mg-] 30 mg PO DAILY 12/31/18 [History Confirmed 12/31/18] Melatonin [Ra Melatonin] 10 mg PO SEE INSTRUCTIONS PRN 12/31/18 [History Confirmed 12/31/18] diPHENhydraMINE PO* [Benadryl PO 25 MG TAB*] 25 mg PO BEDTIME PRN 12/31/18 [ History Confirmed 12/31/18] PMH/Surg Hx/FS Hx/Imm Hx Endocrine/Hematology History: Denies: Hx Diabetes Respiratory History: Denies: Hx Asthma GI History: Reports: Other GI Disorders - h pylori Sensory History: Reports: Hx Contacts or Glasses Denies: Hx Legally Blind, Hx Deafness, Hx Hearing Aid Opthamlomology History: Reports: Hx Contacts or Glasses Denies: Hx Legally Blind Psychiatric History: Reports: Hx Depression, Hx Community Mental Health Tx - CAPS Denies: Hx Eating Disorder, Hx Inpatient Treatment, Hx of Violent Episodes Against Others - Surgical History Surgery Procedure, Year, and Place: none Infectious Disease History: No Infectious Disease History: Denies: Traveled Outside the [place] in Last 30 Days - Family History Known Family History: Positive: Hypertension - father, Renal Disease - mother, Respiratory Disease - asthma in sister - Social History Alcohol Use: Weekly Alcohol Amount: mixed drinks tonight Hx Substance Use: No Substance Use Type: Reports: None Hx Tobacco Use: No Smoking Status (MU): Never Smoked Tobacco Review of Systems Negative: Fever Positive: Sore Throat Positive: Palpitations. Negative: Chest Pain Positive: Shortness Of Breath All Other Systems Reviewed And Are Negative: Yes Physical Exam Triage Information Reviewed: Yes Vital Signs On Initial Exam: Initial Vitals Temp Pulse Resp BP Pulse Ox 98 F 96 16 174/87 99 12/31/18 04:57 12/31/18 04:57 12/31/18 04:57 12/31/18 04:57 12/31/18 04:57 Vital Signs Reviewed: Yes Appearance: Positive: Well-Appearing Skin: Positive: Warm, Dry Head/Face: Positive: Normal Head/Face Inspection Eyes: Positive: Normal, EOMI, VALDO, Conjunctiva Clear ENT: Positive: Normal ENT inspection, Pharynx normal, TMs normal Respiratory/Lung Sounds: Positive: Clear to Auscultation, Breath Sounds Present Cardiovascular: Positive: Normal, RRR Abdomen Description: Positive: Nontender, Soft Bowel Sounds: Positive: Present Musculoskeletal: Positive: Normal Neurological: Positive: Normal Psychiatric: Positive: Normal Diagnostics - Vital Signs Vital Signs Temp Pulse Resp BP Pulse Ox 12/31/18 05:10 96 99 12/31/18 05:09 93 140/103 100 12/31/18 04:57 98 F 96 16 174/87 99 - Laboratory Result Diagrams: 12/31/18 06:03 12/31/18 06:03 Lab Statement: Any lab studies that have been ordered have been reviewed, and results considered in the medical decision making process. - Radiology chest Radiology Interpretation Completed By: ED Physician Summary of Radiographic Findings: no active disease - EKG No standard instances Cardiac Rate: NL EKG Rhythm: Sinus Rhythm Summary of EKG Findings: sinus rhythm Re-Evaluation - Re-Evaluation First Eval Re-Evaluation Time: 06:59 Change: Improved Comment: symptoms improved Course/Dx - Course Course Of Treatment: 23-year-old male presents with shortness of breath for the the past couple days. He states he can't sleep due to his sob. He states he believes that it is due to taking adderall. He has been on the dose for several month. He states that when she lies down he feels like he needs to burp and he can't catch his breath. His heart is racing. He also admits to lower abdominal pain. He admits to urinary symptoms. No fevers or chills. States feels like something is stuck in his throat. No chest pain. No sinus congestion. No recent travel. Nonsmoker. No drug use. no family history of blood clots. He admits to nausea but no vomiting. Has history of acid reflux. On exam patient appears very anxious. Lungs clear to auscultation. Pharynx normal. No lymphadenopathy. Nontender abdomen. wbc normal. tsh normal. Chest x-ray normal. ekg shows sinus rhythm. has no risk factors for PE. patient feeling better after ativan. explained is likely due to anxiety and probably acid reflux component. will place on omeprazole for acid reflux. will place on hydroxyzine for anxiety. told to est care with primary and follow up with psychiatry. patient understand and agrees with plan. - Diagnoses Differential Diagnosis/HQI/PQRI: Positive: Pneumothorax, Other - foreign body, acid reflux, anxiety Provider Diagnoses: Shortness of breath, Anxiety Discharge ED - Sign-Out/Discharge Documenting (check all that apply): Patient Departure Patient Received Moderate/Deep Sedation with Procedure: No - Discharge Plan Condition: Good Disposition: HOME Prescriptions: hydrOXYzine HCL TAB* [Atarax 25 MG TAB*] 25 mg PO QID PRN #20 tab PRN Reason: Anxiety Omeprazole 20 mg PO DAILY #14 capsule. Patient Education Materials: Gastroesophageal Reflux Disease (ED), Anxiety (ED) Referrals: [facility] [place] [facility] [Outside] Additional Instructions: follow up with [facility] or establish care with primary take omeprazole daily take hydroxyzine every 6 hours as needed for anxiety follow up with psychiatrist Return to ED if develop any new or worsening symptoms - Billing Disposition and Condition Condition: GOOD Disposition: Home
[2018-12-31 06:10] LABS: ABS Lymphocytes 1.1 10^3/ul (1.0-4.8); ABS Monocytes 0.7 10^3/ul (0-0.8); ABS Neutrophils 4.1 10^3/ul (1.5-7.7); Eosinophil % 0.2 %; Hematocrit 44 % (42-52); Hemoglobin 15.4 g/dL (14.0-18.0); Mean Corpuscular HGB Conc 35 g/dL (31-36); Mean Corpuscular Hemoglobin 32 pg (27-31); Mean Corpuscular Volume 93 fL (80-94); Mean Platelet Volume 7.1 fL (7.4-10.4); Nucleated Red Blood Cells % 0.2; Platelet Count 279 10^3/uL (150-450); Red Blood Count 4.74 10^6 /uL (4.18-5.48); Red Cell Distribution Width 13 % (10-15); White Blood Count 5.9 10^3/uL (3.5-10.8)
[2018-12-31 06:31] LABS: Albumin 4.6 g/dL (3.2-5.2); Albumin/Globulin Ratio 1.8 (1-3); BUN/Creatinine Ratio 9.2 (8-20); Calcium 10.1 mg/dL (8.6-10.3); EGFR African American 156.7 (>60); EGFR Non-African American 129.5 (>60); Globulin 2.5 g/dL (2-4); Total Bilirubin 1.7 mg/dL (0.2-1.0); Total Protein 7.1 g/dL (6.4-8.9)
[2018-12-31 06:53] LABS: TSH (Thyroid Stimulating Horm) 2.26 mcIU/mL (0.34-5.60)
[2018-12-31 07:32] VITALS: BP 123/77
== END 2018-12-31 07:32 | disposition home or self-care (01) ==
LOC: ED 04:57
DX: R06.02 Shortness of breath (principal); F41.9 Anxiety disorder, unspecified; F32.9 Major depressive disorder, single episode, unspecified; Z79.899 Other long term (current) drug therapy
CPT/HCPCS: 36415; 71046; 80053; 84443; 84484; 85025; 86308; 93005; 99283; A9270-GY

== ENCOUNTER 2019-03-03 01:09 | Emergency (ER) | payer OTHER ==
--- NOTE | 2019-03-03 01:43 | ED ---
Laceration/Wound HPI - HPI Summary HPI Summary: 23-year-old male with a significant past medical history of ADHD reports the emergency department today with a chief complaint of laceration to his right middle finger and not being able to sleep. He states due to his Adderall he has had a significant amount of insomnia for the last 3 weeks and to cope with this he has been taking Benadryl at night as well as having "a few drinks". He states he has 5 drinks a few times a week in order to get to sleep. He states he does not feel he has an issue with alcohol abuse. He states he is seeing a psychiatrist for balancing of his Adderall dosage. He states this evening he was drinking alcohol and dropped the bottle and cut his right middle finger. Bleeding is controlled and he reports 2 out of 10 pain. He states he is up-to- date with his tetanus immunization. He denies homicidal or suicidal ideation. He states he feels safe at home. Denies anticoagulant use. He denies fever, chest pain, abdominal pain, shortness of breath, pain with urination, recreational drug use. - History of Current Complaint Stated Complaint: FINGER LAC PER EMS Time Seen by Provider: 03/03/19 01:22 Hx Obtained From: Patient Mechanism of Injury: Sharp/Blunt Trauma Onset/Duration: Sudden Onset Aggravating: Movement Timing: Constant Onset Severity: Mild Current Severity: None Pain Intensity: 0 Pain Scale Used: 0-10 Numeric Associated Signs & Symptoms: Negative - Additional Pertinent History Primary Care Physician: JOHN - Allergy/Home Medications Allergies/Adverse Reactions: Allergies Allergy/AdvReac Type Severity Reaction Status Date / Time No Known Allergies Allergy Verified 12/31/18 04:59 PMH/Surg Hx/FS Hx/Imm Hx Endocrine/Hematology History: Denies: Hx Diabetes Cardiovascular History: Denies: Hx Hypertension, Hx Pacemaker/ICD Respiratory History: Denies: Hx Asthma GI History: Reports: Other GI Disorders - h pylori History: Denies: Hx Dialysis Sensory History: Reports: Hx Contacts or Glasses Denies: Hx Legally Blind, Hx Deafness, Hx Hearing Aid Opthamlomology History: Reports: Hx Contacts or Glasses Denies: Hx Legally Blind Psychiatric History: Reports: Hx Depression, Hx Community Mental Health Tx - CAPS Denies: Hx Eating Disorder, Hx Inpatient Treatment, Hx of Violent Episodes Against Others - Surgical History Surgery Procedure, Year, and Place: none Infectious Disease History: No Infectious Disease History: Denies: Traveled Outside the [place] in Last 30 Days - Family History Known Family History: Positive: Hypertension - father, Renal Disease - mother, Respiratory Disease - asthma in sister - Social History Alcohol Use: Weekly Alcohol Amount: mixed drinks tonight Hx Substance Use: No Substance Use Type: Reports: None Hx Tobacco Use: No Smoking Status (MU): Never Smoked Tobacco Review of Systems Constitutional: Negative Eyes: Negative Cardiovascular: Negative Respiratory: Negative Gastrointestinal: Negative Genitourinary: Negative Musculoskeletal: Negative Neurological: Negative Positive: Anxious All Other Systems Reviewed And Are Negative: Yes Physical Exam Triage Information Reviewed: Yes Vital Signs On Initial Exam: Initial Vitals Temp Pulse Resp BP Pulse Ox 98.5 F 108 16 131/91 97 03/03/19 01:11 03/03/19 01:11 03/03/19 01:11 03/03/19 01:11 03/03/19 01:11 Vital Signs Reviewed: Yes Appearance: Positive: Well-Appearing, No Pain Distress, Well-Nourished Skin: Positive: Warm, Skin Color Reflects Adequate Perfusion, Other - 2 cm in length by 2 mm in depth laceration to the distal tip of the right middle finger. Hemostasis is achieved. Eyes: Positive: Normal, EOMI ENT: Positive: Hearing grossly normal Respiratory/Lung Sounds: Positive: Clear to Auscultation, Breath Sounds Present Cardiovascular: Positive: RRR, S1, S2 Neurological: Positive: Sensory/Motor Intact, Alert, Oriented to Person Place, Time, Speech Normal Psychiatric: Positive: Normal, Affect/Mood Appropriate, Other - Patient affect is appropriate. He makes good eye contact and conversation. AVPU Assessment: Alert Procedures - Sedation Patient Received Moderate/Deep Sedation with Procedure: No Diagnostics - Vital Signs Vital Signs Temp Pulse Resp BP Pulse Ox 03/03/19 01:11 98.5 F 108 16 131/91 97 - Laboratory Lab Statement: Any lab studies that have been ordered have been reviewed, and results considered in the medical decision making process. Laceration Repair Course/Dx - Course Course Of Treatment: Patient was evaluated in the emergency department today for a 2 cm in length by 2 mm in depth laceration to the right distal third finger. Patient was seen and evaluated. Updated tetanus vaccination was deemed unnecessary as he states he is up-to-date with this. Wound was irrigated using 300cc of normal saline and chlorahexaidine with a syringe. Dermabond skin glue was used to approximate the edges of the laceration. After skin glue dried Steri-Strips were used to further secure the skin flap to allow proper skin repair. A dressing was applied over the wound using tube gauze. He is instructed to leave the dressing in place for 24 hours and to keep it dry. He was given instructions on how to clean his wound by rinsing it with warm soapy water and patting it dry. He is to follow-up with his primary care physician or [facility] in 2-3 days for wound check. He is informed to return to the emergency department immediately if he developed any new or worsening symptoms. Patient agreed with this plan. - Differential Dx Differental Diagnoses: Laceration - thank you - Clinical Impression Provider Diagnoses: Laceration Discharge ED - Sign-Out/Discharge Documenting (check all that apply): Patient Departure - Discharge Plan Condition: Improved Disposition: HOME Patient Education Materials: Laceration (ED) Referrals: No Primary Care Phys,NOPCP [Primary Care Provider] - Additional Instructions: You were seen in the emergency department today due to a laceration of the right middle finger. Laceration was repaired using Dermabond skin glue and Steri-Strips. In order to care for your wound please keep it dry and in the bandage for 24 hours. After this time you may remove the bandage and reapply new dressing as you see fit. The Steri-Strips may remain on until they fall off or until they are half on and half off. The Dermabond skin glue will dissolve and does not need to be removed. Please follow-up with [facility] in one to 2 days for wound check. Please return to the emergency department if you develop any new or worsening symptoms. - Billing Disposition and Condition Condition: IMPROVED Disposition: Home
[2019-03-03 02:56] VITALS: BP 128/77
== END 2019-03-03 02:00 | disposition home or self-care (01) ==
LOC: ED 01:09
DX: S61.212A Laceration without foreign body of right middle finger without damage to nail, initial encounter (principal); W25.XXXA Contact with sharp glass, initial encounter; Y92.9 Unspecified place or not applicable; F90.9 Attention-deficit hyperactivity disorder, unspecified type
CPT/HCPCS: 12001; 99282

== ENCOUNTER 2019-03-03 07:48 | Emergency (ER) | payer OTHER ==
--- NOTE | 2019-03-03 08:05 | ED ---
Psychiatric Complaint - HPI Summary HPI Summary: Patient is a 23 y/o M presenting to the ED via EMS for a chief complaint of insomnia for the last 2 days. Patient admits to taking 3 pills of 75 mg Benadryl at around 03:30 on 03/03/19. Per EMS, the dosage of the Benadryl was 150 mg. He also reports drinking 5-6 shots of vodka. He reports agitation and anxiety after taking Benadryl and drinking alcohol. He states he has a " negative reaction" when taking Nyquil or Benadryl. Patient notes that he cut his finger on the alcohol bottle and has an abrasion of the thumb of the right hand. Patient states he believes he has sleep apnea because he has occasional shortness of breath while sleeping. Patient denies suicidal ideation or homicidal ideation. Patient takes Adderall in the morning and Klonopin. He also currently sees a psychiatrist. - History Of Current Complaint Chief Complaint: EDMentalHealth Time Seen by Provider: 03/03/19 07:52 Hx Obtained From: Patient Onset/Duration: Sudden Onset, Still Present Timing: Constant Severity Initially: Moderate Severity Currently: Moderate Character: Anxious Aggravating Factor(s): Alcohol Use Alleviating Factor(s): Nothing Associated Signs And Symptoms: Positive: Sleep Disturbance - Insomnia Has Suicidal: Denies: Thoughts Has Homicidal: Denies: Thoughts Ingestion History: Type/Name Of Drug - Benadryl and alcohol, Amount Ingested - 3 -150 mg Benadryl; 5-6 shots of vodka - Allergies/Home Medications Allergies/Adverse Reactions: Allergies Allergy/AdvReac Type Severity Reaction Status Date / Time No Known Allergies Allergy Verified 03/03/19 08:26 Home Medications: Home Medications Amphetamine/Dextroamph ER(NF) [Adderal XR (NF)] 20 mg PO DAILY 03/03/19 [ History Confirmed 03/03/19] cloNIDine TAB* [Catapres 0.1 MG TAB*] 0.2 mg PO BEDTIME 03/03/19 [History Confirmed 03/03/19] diphenhydrAMINE HCl [Allergy Relief Nighttime] 25 mg PO DAILY 03/03/19 [History Confirmed 03/03/19] PMH/Surg Hx/FS Hx/Imm Hx Previously Healthy: Yes Endocrine/Hematology History: Denies: Hx Diabetes Cardiovascular History: Denies: Hx Hypercholesterolemia, Hx Hypertension, Hx Pacemaker/ICD Respiratory History: Denies: Hx Asthma GI History: Reports: Other GI Disorders - h pylori History: Denies: Hx Dialysis Sensory History: Reports: Hx Contacts or Glasses Denies: Hx Legally Blind, Hx Deafness, Hx Hearing Aid Opthamlomology History: Reports: Hx Contacts or Glasses Denies: Hx Legally Blind EENT History: Denies: Hx Deafness Psychiatric History: Reports: Hx Depression, Hx Community Mental Health Tx - CAPS Denies: Hx Eating Disorder, Hx Inpatient Treatment, Hx of Violent Episodes Against Others - Surgical History Surgical History: None Surgery Procedure, Year, and Place: none Infectious Disease History: No Infectious Disease History: Denies: Traveled Outside the [place] in Last 30 Days - Family History Known Family History: Positive: Hypertension - father, Renal Disease - mother, Respiratory Disease - asthma in sister - Social History Occupation: Student Lives: Dormitory/Roommates Alcohol Use: Weekly Alcohol Amount: mixed drinks tonight Hx Substance Use: No Substance Use Type: Reports: None Hx Tobacco Use: No Smoking Status (MU): Never Smoked Tobacco Review of Systems Positive: Shortness Of Breath - While sleeping Positive: Other - Positive abrasion on the thumb of the right hand Positive: Anxious, Other - Negative SI or HI; positive agitation and insomnia for 2 days All Other Systems Reviewed And Are Negative: Yes Physical Exam - Summary Physical Exam Summary: VITAL SIGNS: Reviewed. GENERAL: Patient is a well-developed and nourished MALE who is lying comfortable in the stretcher. Patient is not in any acute respiratory distress. HEAD AND FACE: No signs of trauma. No ecchymosis, hematomas or skull depressions. No sinus tenderness. EYES: PERRLA, EOMI x 2, No injected conjunctiva, no nystagmus. EARS: Hearing grossly intact. Ear canals and tympanic membranes are within normal limits. MOUTH: Oropharynx within normal limits. NECK: Supple, trachea is midline, no adenopathy, no JVD, no carotid bruit, no c- spine tenderness, neck with full ROM. CHEST: Symmetric, no tenderness at palpation. LUNGS: Clear to auscultation bilaterally. No wheezing or crackles. CVS: Regular rate and rhythm, S1 and S2 present, no murmurs or gallops appreciated. ABDOMEN: Soft, non-tender. No signs of distention. No rebound, no guarding, and no masses palpated. Bowel sounds are normal. EXTREMITIES: FROM in all major joints, no edema, no cyanosis or clubbing. NEURO: Alert and oriented x 3. No acute neurological deficits. Speech is normal and follows commands. SKIN: Dry and warm. Abrasion on the right middle finger which is clean and dry. PSYCH: Depressed, quiet, and denies any suicidal thoughts or plan. No homicidal thoughts or plan. No signs of psychosis or pressure speech. No tangential speech. Anxious. Triage Information Reviewed: Yes Vital Signs On Initial Exam: Initial Vitals Temp Pulse Resp BP Pulse Ox 98.7 F 101 17 144/91 94 03/03/19 07:51 03/03/19 07:51 03/03/19 07:51 03/03/19 07:51 03/03/19 07:51 Vital Signs Reviewed: Yes Procedures - Sedation Patient Received Moderate/Deep Sedation with Procedure: No Diagnostics - Vital Signs Vital Signs Temp Pulse Resp BP Pulse Ox 03/03/19 07:51 98.7 F 101 17 144/91 94 - Laboratory Result Diagrams: 03/03/19 08:07 03/03/19 08:07 Lab Statement: Any lab studies that have been ordered have been reviewed, and results considered in the medical decision making process. - EKG 08:13 Cardiac Rate: NL - 98 BPM EKG Rhythm: Sinus Rhythm ST Segment: Normal Ectopy: None EKG Comparison: No Significant Change Summary of EKG Findings: EKG at 08:13 shows 98 BPM with normal sinus rhythm, no ST elevations, no STEMI. Similar to previous EKG on 12/31/18. Reviewed and interpreted by Dr. Slater. Re-Evaluation - Re-Evaluation First Eval Re-Evaluation Time: 08:15 Change: Unchanged Comment: At 08:15, patient is medically cleared for a MH evaluation. Course/Dx - Course Assessment/Plan: Patient is a 23-year-old male who presents to the emergency department with a chief complaint of anxiety. The patient reports that he has been taking Adderall, alcohol and Benadryl and now the patient reports insomnia and anxiety. Blood work is without any significant abnormality except for AST 121, AST 116. Urinalysis 1+ protein and 1+ blood, 1+ (1), 1+ bacteria, sperm is present. He reports no urinary tract infection symptoms. At approximately 12 :25 PM the patient is medically cleared. The patient was awaiting for mental health evaluation. Patient is hemodynamically stable. Patient was evaluated by Dr. Christy and he requests for the patient to be discharged home and follow up with his Nurse Practitioner. - Differential Dx/Clinical Impression Provider Diagnosis: Anxiety, Amphetamine-induced anxiety disorder - Physician Notifications Discussed Care Of Patient With: Jt Christy - At 16:03, fine wire drawer reports that Dr. 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 Patient will follow up with Amrita Aguero NP. Time Discussed With Above Provider: 16:03 Instructed by Provider To: Other - Discharge Discharge ED - Sign-Out/Discharge Documenting (check all that apply): Patient Departure - Discharge - Discharge Plan Condition: Stable Disposition: HOME Referrals: [facility] [Outside] Amrita Aguero [Nurse Practitioner] - - Billing Disposition and Condition Condition: STABLE Disposition: Home - Attestation Statements Document Initiated by Scribe: Yes Documenting Scribe: Claudia Buchanan Provider For Whom Richard is Documenting (Include Credential): Rangel Slater MD Scribe Attestation: IClaudia, scribed for Rangel Slater MD on 03/03/19 at 1753. Scribe Documentation Reviewed: Yes Provider Attestation: The documentation as recorded by the Claudia harrington accurately reflects the service I personally performed and the decisions made by , Rangel Slater MD Status of Scribe Document: Viewed
[2019-03-03 08:31] LABS: ABS Lymphocytes 1.7 10^3/ul (1.0-4.8); ABS Monocytes 0.3 10^3/ul (0-0.8); ABS Neutrophils 1.8 10^3/ul (1.5-7.7); Eosinophil % 0.8 %; Hematocrit 46 % (42-52); Mean Corpuscular HGB Conc 35 g/dL (31-36); Mean Corpuscular Hemoglobin 34 pg (27-31); Mean Corpuscular Volume 96 fL (80-94); Mean Platelet Volume 7.2 fL (7.4-10.4); Nucleated Red Blood Cells % 0.4; Platelet Count 292 10^3/uL (150-450); Red Blood Count 4.77 10^6 /uL (4.18-5.48); Red Cell Distribution Width 13 % (10-15); White Blood Count 3.9 10^3/uL (3.5-10.8)
[2019-03-03 08:33] LABS: Urine Appearance Clear; Urine Color Yellow; Urine Ketones Negative (Negative); Urine Protein 1+(30 mg/dL) (Negative); Urine Urobilinogen Negative (Negative)
[2019-03-03 08:34] LABS: Urine Bilirubin Negative (Negative); Urine Blood 1+ (Negative); Urine Glucose Negative (Negative); Urine Nitrite Negative (Negative)
[2019-03-03 08:36] LABS: ALT 116 U/L (7-52); AST 121 U/L (13-39); Albumin 4.8 g/dL (3.2-5.2); Albumin/Globulin Ratio 1.8 (1-3); Alkaline Phosphatase 90 U/L (34-104); Anion Gap 8 mmol/L (2-11); BUN/Creatinine Ratio 8.3 (8-20); Blood Urea Nitrogen 7 mg/dL (6-24); CO2 Carbon Dioxide 27 mmol/L (22-32); Calcium 9.3 mg/dL (8.6-10.3); Chloride 107 mmol/L (101-111); EGFR African American 139.6 (>60); EGFR Non-African American 115.3 (>60); Globulin 2.7 g/dL (2-4); Glucose 87 mg/dL (70-100); Potassium 3.8 mmol/L (3.5-5.0); Sodium 142 mmol/L (135-145); Total Protein 7.5 g/dL (6.4-8.9); Urine Benzodiazepine Screen None Detected (None Detect); Urine Opiates Screen None Detected (None Detect)
[2019-03-03 08:44] LABS: Urine Bacteria 1+ (Absent); Urine Red Blood Cell 1+(3-5/hpf) (Absent); Urine White Blood Cell 1+(6-10/hpf) (Absent)
[2019-03-03 08:49] LABS: Acetaminophen < 15 mcg/mL; Alcohol 207 mg/dL (<10); Salicylate < 2.50 mg/dL (<30)
[2019-03-03 09:04] LABS: TSH (Thyroid Stimulating Horm) 2.52 mcIU/mL (0.34-5.60)
[2019-03-03 16:23] VITALS: BP 109/58
== END 2019-03-03 16:51 | disposition home or self-care (01) ==
LOC: ED 07:48
DX: F41.9 Anxiety disorder, unspecified (principal); R06.02 Shortness of breath; F15.980 Other stimulant use, unspecified with stimulant-induced anxiety disorder; Z72.89 Other problems related to lifestyle; Z79.899 Other long term (current) drug therapy; S60.311A Abrasion of right thumb, initial encounter; W25.XXXA Contact with sharp glass, initial encounter; Y92.9 Unspecified place or not applicable
CPT/HCPCS: 36415; 80053; 80307; 80320; 80329; 81003; 81015; 84443; 85025; 87086; 93005; 99285; G0480

== ENCOUNTER 2019-03-04 16:16 | Inpatient (IN) | payer OTHER ==
--- NOTE | 2019-03-04 16:32 | ED ---
Psychiatric Complaint - HPI Summary HPI Summary: Patient is a 23 y/o M presenting to the ED for a chief complaint of anxiety and lack of sleep. Patient states he feels psychotic. He states he has been unable to sleep for the last 4-5 days. When he attempts to sleep, he notes feeling anxious and has shortness of breath. Patient was seen at [facility] on for similar symptoms after taking 5-6 shots of vodka and taking Benadryl. Patient denies drinking alcohol, taking drugs, or taking Adderall on 03/04/19. On triage, patient admits confusion. Patient denies suicidal or homicidal ideation. Patient is a student at [employer]. - History Of Current Complaint Chief Complaint: EDAltMentalStatus Time Seen by Provider: 03/04/19 16:22 Hx Obtained From: Patient Onset/Duration: Sudden Onset, Lasting Days - 5 days, Still Present Timing: Constant Severity Initially: Moderate Severity Currently: Moderate Character: Anxious Aggravating Factor(s): Nothing Alleviating Factor(s): Nothing Associated Signs And Symptoms: Positive: Confused, Sleep Disturbance Related History: Positive For: Prior Psychiatric Issues Has Suicidal: Denies: Thoughts Has Homicidal: Denies: Thoughts - Allergies/Home Medications Allergies/Adverse Reactions: Allergies Allergy/AdvReac Type Severity Reaction Status Date / Time No Known Allergies Allergy Verified 03/04/19 16:23 Home Medications: Home Medications Melatonin [Ra Melatonin] 10 mg PO BEDTIME 03/04/19 [History Confirmed 03/04/19] PMH/Surg Hx/FS Hx/Imm Hx Previously Healthy: Yes Endocrine/Hematology History: Denies: Hx Diabetes Cardiovascular History: Denies: Hx Hypercholesterolemia, Hx Hypertension, Hx Pacemaker/ICD Respiratory History: Denies: Hx Asthma GI History: Reports: Other GI Disorders - h pylori History: Denies: Hx Dialysis Sensory History: Reports: Hx Contacts or Glasses Denies: Hx Legally Blind, Hx Deafness, Hx Hearing Aid Opthamlomology History: Reports: Hx Contacts or Glasses Denies: Hx Legally Blind EENT History: Denies: Hx Deafness Psychiatric History: Reports: Hx Depression, Hx Community Mental Health Tx - CAPS Denies: Hx Eating Disorder, Hx Inpatient Treatment, Hx of Violent Episodes Against Others - Surgical History Surgical History: None Surgery Procedure, Year, and Place: none Infectious Disease History: No Infectious Disease History: Denies: Traveled Outside the [place] in Last 30 Days - Family History Known Family History: Positive: Hypertension - father, Renal Disease - mother, Respiratory Disease - asthma in sister - Social History Occupation: Student Lives: Dormitory/Roommates Alcohol Use: Weekly Alcohol Amount: mixed drinks tonight Hx Substance Use: No Substance Use Type: Reports: None Hx Tobacco Use: No Smoking Status (MU): Never Smoked Tobacco Review of Systems Positive: Shortness Of Breath - At night when attempting to sleep Neurological: Other - Positive confusion Positive: Anxious, Other - Positive insomnia; negative suicidal or homicidal ideations All Other Systems Reviewed And Are Negative: Yes Physical Exam - Summary Physical Exam Summary: VITAL SIGNS: Reviewed. GENERAL: Patient is a well-developed and nourished MALE who is lying comfortable in the stretcher. Patient is not in any acute respiratory distress. HEAD AND FACE: No signs of trauma. No ecchymosis, hematomas or skull depressions. No sinus tenderness. EYES: PERRLA, EOMI x 2, No injected conjunctiva, no nystagmus. EARS: Hearing grossly intact. Ear canals and tympanic membranes are within normal limits. MOUTH: Oropharynx within normal limits. NECK: Supple, trachea is midline, no adenopathy, no JVD, no carotid bruit, no c- spine tenderness, neck with full ROM. CHEST: Symmetric, no tenderness at palpation. LUNGS: Clear to auscultation bilaterally. No wheezing or crackles. CVS: Regular rate and rhythm, S1 and S2 present, no murmurs or gallops appreciated. ABDOMEN: Soft, non-tender. No signs of distention. No rebound, no guarding, and no masses palpated. Bowel sounds are normal. EXTREMITIES: FROM in all major joints, no edema, no cyanosis or clubbing. NEURO: Alert and oriented x 3. No acute neurological deficits. Speech is normal and follows commands. SKIN: Dry and warm. PSYCH: Anxious, quiet, and denies any suicidal thoughts or plan. No homicidal thoughts or plan. No signs of psychosis or pressure speech. No tangential speech. Triage Information Reviewed: Yes Vital Signs On Initial Exam: Initial Vitals Temp Pulse Resp BP Pulse Ox 97.5 F 90 18 113/66 98 03/04/19 16:20 03/04/19 16:20 03/04/19 16:20 03/04/19 16:20 03/04/19 16:20 Vital Signs Reviewed: Yes Procedures - Sedation Patient Received Moderate/Deep Sedation with Procedure: No Diagnostics - Vital Signs Vital Signs Temp Pulse Resp BP Pulse Ox 03/04/19 16:20 97.5 F 90 18 113/66 98 - Laboratory Result Diagrams: 03/04/19 16:38 03/04/19 16:38 Lab Statement: Any lab studies that have been ordered have been reviewed, and results considered in the medical decision making process. Re-Evaluation - Re-Evaluation First Eval Re-Evaluation Time: 16:47 Change: Unchanged Comment: At 16:47, patient is medically cleared for a evalaution. Second Eval Re-Evaluation Time: 19:40 Change: Unchanged Comment: At 19:40, patient will be given [address] per Dr[address] Francis Jung' s recommendation. Third Eval Re-Evaluation Time: 21:20 Change: Unchanged Comment: Patient will be admitted to [facility] for substance-induced psychosis. Course/Dx - Course Assessment/Plan: Patient was medically cleared. Patient was evaluated by Dr. Jung from psychiatry and he recommends admission to his services for further workup and management. Patient is hemodynamically stable. Dr. Jung recommended to give the patient 2 milligrams of Ativan by mouth. - Differential Dx/Clinical Impression Provider Diagnosis: Substance-induced psychotic disorder - Physician Notifications Discussed Care Of Patient With: Francis Jung - At 19:17, churner reports that the patients case was reviewed by Dr. Francis Jung who will discharge the patient with substance-induced psychosis. Follow up with PCP and outpatient drug and alcohol counselling. At 19:40, Dr. Francis Jung recommended to give the patient Ativan 2 mg PO before discharge. At 21:20, churner reports that patients case was reviewed by Dr. Francis Jung who will admit the patient to [facility] on a [id number] with a diagnosis of substance- induced psychosis. Time Discussed With Above Provider: 19:17 Instructed by Provider To: Admit As Inpatient - [place] [facility] - Sign-Out/Discharge Documenting (check all that apply): Patient Departure - Admit - Discharge Plan Condition: Stable Disposition: [facility]ATR[facility] Patient Education Materials: Abuse of Alcohol (ED), Insomnia (ED), Anxiety (ED) Referrals: [facility] [Other] (please follow up with Dr. Aguero tomorrow) [facility] [Outside] [facility] [Outside] [facility] [Outside] - Billing Disposition and Condition Condition: STABLE Disposition: Psychiatric Facility [facility] - Attestation Statements Document Initiated by Scribe: Yes Documenting Scribe: Claudia Buchanan Provider For Whom Moonibe is Documenting (Include Credential): Rangel Slater MD Scribe Attestation: Claudia Mera, scribed for Rangel Slater MD on 03/04/19 at 2149. Scribe Documentation Reviewed: Yes Provider Attestation: The documentation as recorded by the Claudia harrington accurately reflects the service I personally performed and the decisions made by Rangel elaine MD Status of Scribe Document: Viewed
[2019-03-04 16:49] LABS: ABS Eosinophils 0.1 10^3/ul (0-0.6); ABS Lymphocytes 1.9 10^3/ul (1.0-4.8); ABS Monocytes 0.4 10^3/ul (0-0.8); ABS Neutrophils 2.3 10^3/ul (1.5-7.7); Eosinophil % 1.3 %; Hematocrit 41 % (42-52); Hemoglobin 14.1 g/dL (14.0-18.0); Lymphocyte % 39.7 %; Mean Corpuscular HGB Conc 34 g/dL (31-36); Mean Corpuscular Hemoglobin 34 pg (27-31); Mean Corpuscular Volume 98 fL (80-94); Mean Platelet Volume 7.4 fL (7.4-10.4); Nucleated Red Blood Cells % 0.5; Platelet Count 255 10^3/uL (150-450); Red Blood Count 4.21 10^6 /uL (4.18-5.48); Red Cell Distribution Width 13 % (10-15); White Blood Count 4.7 10^3/uL (3.5-10.8)
[2019-03-04 17:06] LABS: Urine Appearance Cloudy; Urine Bilirubin Negative (Negative); Urine Blood Negative (Negative); Urine Color Amber; Urine Glucose Negative (Negative); Urine Ketones Trace (Negative); Urine Nitrite Negative (Negative); Urine Protein 2+(100 mg/dL) (Negative); Urine Urobilinogen Positive (Negative)
[2019-03-04 17:11] LABS: Urine Bacteria Absent (Absent); Urine Red Blood Cell Absent (Absent); Urine White Blood Cell Trace(0-5/hpf) (Absent)
[2019-03-04 17:16] LABS: ALT 99 U/L (7-52); AST 85 U/L (13-39); Albumin 4.2 g/dL (3.2-5.2); Albumin/Globulin Ratio 1.7 (1-3); Alkaline Phosphatase 104 U/L (34-104); Anion Gap 4 mmol/L (2-11); BUN/Creatinine Ratio 11.7 (8-20); Blood Urea Nitrogen 9 mg/dL (6-24); CO2 Carbon Dioxide 31 mmol/L (22-32); Calcium 9.3 mg/dL (8.6-10.3); Chloride 103 mmol/L (101-111); EGFR African American 154.3 (>60); EGFR Non-African American 127.5 (>60); Globulin 2.5 g/dL (2-4); Glucose 126 mg/dL (70-100); Sodium 138 mmol/L (135-145); Total Protein 6.7 g/dL (6.4-8.9)
[2019-03-04 17:24] LABS: Acetaminophen < 15 mcg/mL; Alcohol < 10 mg/dL (<10); Salicylate < 2.50 mg/dL (<30)
[2019-03-04 17:31] LABS: Urine Benzodiazepine Screen None Detected (None Detect); Urine Opiates Screen None Detected (None Detect)
[2019-03-04 17:39] LABS: TSH (Thyroid Stimulating Horm) 1.03 mcIU/mL (0.34-5.60)
[2019-03-04] MEDS ORDERED: LORazepam TAB(*) 1 MG PO ONE (19:40)
[2019-03-04] MEDS ORDERED: Acetaminophen TAB* 325 MG PO PRN (22:59)
[2019-03-04] MEDS ORDERED: Al Hydrox/Mg Hydrox/Simet LIQ* 30 ML UDC PO PRN (22:59)
[2019-03-05] MEDS ORDERED: QUEtiapine TAB* 25 MG ONE (00:17)
[2019-03-05] MEDS ORDERED: QUEtiapine TAB* 25 MG PO ONE (00:30)
[2019-03-05 09:00] LABS: HDL Cholesterol 70.7 mg/dL
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
[2019-03-05] MEDS: Folic Acid TAB* 1 MG PO SCH (12:53)
[2019-03-05] MEDS: Thiamine TAB* 100 MG TAB PO SCH (12:54)
[2019-03-05] MEDS: Propranolol TAB* 10 MG PO SCH ×2 (12:54→22:16)
[2019-03-05] MEDS: buPROPion TAB* 100 MG PO SCH (12:54)
[2019-03-05] MEDS: Vitamin THERAPEUTIC TAB PO SCH (12:55)
[2019-03-05] MEDS: QUEtiapine TAB* 100 MG PO SCH (22:16)
[2019-03-06] MEDS: Thiamine TAB* 100 MG TAB PO SCH (10:03)
[2019-03-06] MEDS: buPROPion TAB* 100 MG PO SCH (10:04)
[2019-03-06] MEDS: Propranolol TAB* 10 MG PO SCH ×2 (10:04→20:25)
[2019-03-06] MEDS: Folic Acid TAB* 1 MG PO SCH (10:04)
[2019-03-06] MEDS: Vitamin THERAPEUTIC TAB PO SCH (10:05)
--- NOTE | 2019-03-06 11:44 | PN ---
Subjective - Subjective Date of Service: 03/06/19 Service Type: 79646 Hosp care 35 min high complexity Subjective: Nursing Report: Patient was visible on unit, no behavioral incidents. Slept overnight. Not attending group activities. CC: "I slept really well last night" Patient was seen and evaluated in the common room. The patient reported he slept well overnight. He declined substance abuse rehabilitation. His friend Kamilah visited last night. He doesnt plan to continue taking Adderall once he leaves the hospital. He reported having adequate appetite. The patient plans to go to the groups today. Per nursing no behavioral issues or overnight events reported. Patient reported that he is tolerating medications without side effects. Objective - General Observations Appearance: Disheveled Appears Stated Age: Yes Stature: Thin Posture: Slumped Eye Contact: Average Behavior/Activity: WNL - Interaction Observations Attitude Towards Examiner: Cooperative Stated Mood: Anxious Affect: Restricted Speech Pattern/Tone: Appropriate Thought Process: Goal Directed Perception: WNL Thought Content: WNL Hallucination Type: None Delusion Type: None - Cognitive Function Orientation: A&O x 4 Level of Consciousness: Awake - Medication Compliance Cooperative with Inpatient Medication Regimen: Yes - Group Participation Participates in Group Activities: No Assessment - Assessment Merits Inpatient Hospitalization: For Immediate Safety Plan - Plan Treatment Plan: Name: HEATHER GUERRA Birthdate: 1995 [id number] #Q15 minute observation. # The patient requires psychiatric inpatient admission at this time to assure safety, receive treatment and work toward stabilization. # EKG QTc 433 # Increase wellbutrin 150mg po daily # Continue propranolol 10mg BID # Continue seroquel 100mg qhs. # Obtain collateral information from Kamilah # Collaboration with Social Work # Continue Thiamine 200mg PO daily # Declined substance abuse rehabilitation #Goals before discharge include: Improve sleep, eliminate suicidal ideation Tentative Discharge: Pending psychiatric stabilization Sodium 138 mmol/L (135-145) 03/04/19 16:38 Potassium 5.0 mmol/L (3.5-5.0) 03/04/19 16:38 BUN 9 mg/dL (6-24) 03/04/19 16:38 Creatinine 0.77 mg/dL (0.67-1.17) 03/04/19 16:38 Hemoglobin A1c 5.2 % (4.0-5.6) 03/05/19 08:18 Calcium 9.3 mg/dL (8.6-10.3) 03/04/19 16:38 AST 85 U/L (13-39) H 03/04/19 16:38 ALT 99 U/L (7-52) H 03/04/19 16:38 Triglycerides 118 mg/dL 03/05/19 08:19 Cholesterol 150 mg/dL 03/05/19 08:19 LDL Cholesterol 56 mg/dL 03/05/19 08:19 Continued Medication Management: Continue Outpt Medication Medications: Current Medications Acetaminophen (Tylenol Tab*) 650 mg PO Q4H PRN PRN Reason: PAIN or TEMP > 101 F Al Hydrox/Mg Hydrox/Simethicone (Maalox Plus*) 30 ml PO Q4H PRN PRN Reason: INDIGESTION Bupropion HCl (Wellbutrin Tab*) 100 mg PO DAILY [facility] Last Admin: 03/06/19 10:04 Dose: 100 mg Folic Acid (Folvite Tab*) 1 mg PO DAILY [facility] Last Admin: 03/06/19 10:04 Dose: 1 mg Multivitamins (Theragran Tab*) 1 tab PO DAILY [facility] Last Admin: 03/06/19 10:05 Dose: 1 tab Propranolol HCl (Inderal Tab*) 10 mg PO BID [facility] Last Admin: 03/06/19 10:04 Dose: 10 mg Quetiapine Fumarate (Seroquel Tab*) 100 mg PO BEDTIME [facility] Last Admin: 03/05/19 22:16 Dose: 100 mg Thiamine HCl (Vitamin B-1 Tab*) 200 mg PO DAILY [facility] Last Admin: 03/06/19 10:03 Dose: 200 mg - Discharge Plan Discharge Plan: Inpatient Hospitalization
[2019-03-06] MEDS: QUEtiapine TAB* 100 MG PO SCH (20:25)
[2019-03-07] MEDS: Folic Acid TAB* 1 MG PO SCH (10:37)
[2019-03-07] MEDS: buPROPion TAB* 100 MG PO SCH (10:37)
[2019-03-07] MEDS: Propranolol TAB* 10 MG PO SCH ×2 (10:38→20:40)
[2019-03-07] MEDS: Thiamine TAB* 100 MG TAB PO SCH (10:38)
[2019-03-07] MEDS: Vitamin THERAPEUTIC TAB PO SCH (10:39)
--- NOTE | 2019-03-07 12:49 | PN ---
Subjective - Subjective Date of Service: 03/07/19 Service Type: 17089 Hosp care 35 min high complexity Subjective: Nursing Report: Patient was visible on unit, no behavioral incidents. Slept overnight. Attending group activities. CC: "I am okay" Patient was seen and evaluated today. A meeting took place with his surrogate mother who expressed that she think it is best that he be discharged Sunday. She noted that he needs to call public safety himself because of recent youtube video threats from Yarsanism extremists. The patient reported he slept well overnight. He plans to stop drinking alcohol and stay at [facility] for the holidays. He doesnt plan to continue taking Adderall once he leaves the hospital and plans to see his Psychiatric provider once he is discharged. He denied recent panic attacks. He reported having adequate appetite. Per nursing no behavioral issues or overnight events reported. Patient reported that he is tolerating medications without side effects. Objective - General Observations Appearance: Neat Appears Stated Age: Yes Stature: Thin Posture: WNL Eye Contact: Average Behavior/Activity: WNL - Interaction Observations Attitude Towards Examiner: Cooperative Affect: Restricted Speech Pattern/Tone: Clear Thought Process: Coherent Perception: WNL Thought Content: WNL Hallucination Type: None Delusion Type: None - Cognitive Function Orientation: A&O x 4 Level of Consciousness: Awake Cognition: WNL - Medication Compliance Cooperative with Inpatient Medication Regimen: Yes - Group Participation Participates in Group Activities: Partial Assessment - Assessment Merits Inpatient Hospitalization: For Immediate Safety Clinical Impression: 23 year old Male with history of depression and ADHD unable to sleep for several days and recent suicidal ideation came to the hospital and was admitted to the BSU at [facility]. Plan - Plan Treatment Plan: Name: HEATHER GUERRA Birthdate: 1995 [id number] #Q30 minute observation with staff pass # The patient requires psychiatric inpatient admission at this time to assure safety, receive treatment and work toward stabilization. # Continue wellbutrin 150mg po daily # Continue propranolol 10mg BID # Continue seroquel 100mg qhs. # Family meeting took place today # Collaboration with Social Work # Continue Thiamine 200mg PO daily # Declined substance abuse rehabilitation #Goals before discharge include: Improve sleep, eliminate suicidal ideation Tentative Discharge: Sunday Sodium 138 mmol/L (135-145) 03/04/19 16:38 Potassium 5.0 mmol/L (3.5-5.0) 03/04/19 16:38 BUN 9 mg/dL (6-24) 03/04/19 16:38 Creatinine 0.77 mg/dL (0.67-1.17) 03/04/19 16:38 Hemoglobin A1c 5.2 % (4.0-5.6) 03/05/19 08:18 Calcium 9.3 mg/dL (8.6-10.3) 03/04/19 16:38 AST 85 U/L (13-39) H 03/04/19 16:38 ALT 99 U/L (7-52) H 03/04/19 16:38 Triglycerides 118 mg/dL 03/05/19 08:19 Cholesterol 150 mg/dL 03/05/19 08:19 LDL Cholesterol 56 mg/dL 03/05/19 08:19 Continued Medication Management: Continue Outpt Medication Medications: Current Medications Acetaminophen (Tylenol Tab*) 650 mg PO Q4H PRN PRN Reason: PAIN or TEMP > 101 F Al Hydrox/Mg Hydrox/Simethicone (Maalox Plus*) 30 ml PO Q4H PRN PRN Reason: INDIGESTION Bupropion HCl (Wellbutrin Tab*) 150 mg PO DAILY [facility] Last Admin: 03/07/19 10:37 Dose: 150 mg Folic Acid (Folvite Tab*) 1 mg PO DAILY [facility] Last Admin: 03/07/19 10:37 Dose: 1 mg Multivitamins (Theragran Tab*) 1 tab PO DAILY [facility] Last Admin: 03/07/19 10:39 Dose: 1 tab Propranolol HCl (Inderal Tab*) 10 mg PO BID [facility] Last Admin: 03/07/19 10:38 Dose: 10 mg Quetiapine Fumarate (Seroquel Tab*) 100 mg PO BEDTIME [facility] Last Admin: 03/06/19 20:25 Dose: 100 mg Thiamine HCl (Vitamin B-1 Tab*) 200 mg PO DAILY [facility] Last Admin: 03/07/19 10:38 Dose: 200 mg - Discharge Plan Discharge Plan: Inpatient Hospitalization
[2019-03-07] MEDS: QUEtiapine TAB* 100 MG PO SCH (20:41)
[2019-03-08] MEDS: Thiamine TAB* 100 MG TAB PO SCH (08:34)
[2019-03-08] MEDS: Vitamin THERAPEUTIC TAB PO SCH (08:34)
[2019-03-08] MEDS: Folic Acid TAB* 1 MG PO SCH (08:34)
[2019-03-08] MEDS: Propranolol TAB* 10 MG PO SCH ×2 (08:35→20:23)
[2019-03-08] MEDS: buPROPion TAB* 100 MG PO SCH (08:35)
--- NOTE | 2019-03-08 10:41 | PN ---
Subjective - Subjective Date of Service: 03/08/19 Service Type: [id number] Hosp care 15 min low complexity Subjective: Reports having been taking benadryl and melatonin sometimes mixed with alcohol to counter insomnia from Adderall. Had also heen having dissociative symptoms afther taking clonidine that made his throat close up. Reports some good effects from Seroquel for sleep and propranolol for anxiety, unsure of any benefit but no side effect of Wellbutrin. Objective - General Observations Appearance: Neat Appears Stated Age: Yes Stature: WNL Posture: WNL Eye Contact: Average Behavior/Activity: WNL - Interaction Observations Attitude Towards Examiner: Cooperative Stated Mood: Euthymic - "just tired" Affect: Full Speech Pattern/Tone: Clear, Appropriate, Normal Volume Thought Process: Coherent Perception: WNL Thought Content: WNL Hallucination Type: None Delusion Type: None - Cognitive Function Orientation: A&O x 4 Level of Consciousness: Awake, Alert, Appropriate Cognition: WNL Estimated Intelligence: Above Normal Insight: WNL Judgment Within Normal Limits: Yes - Medication Compliance Cooperative with Inpatient Medication Regimen: Yes - Group Participation Participates in Group Activities: Yes Assessment - Assessment Merits Inpatient Hospitalization: For Stabilization, To Initiate Treatment, Consolidate Improvements, For Discharge Planning, Pending Safe DC Plan Clinical Impression: 23 year old Male with history of depression and ADHD unable to sleep for several days and recent suicidal ideation came to the hospital and [facility] REports good effect of Seroquel and propranol, awaiting effect of Wellbutrin. Plan - Plan Treatment Plan: Name: HEATHER GUERRA Birthdate: 1995 [id number] Per Dr Chavez on Sunday: #Q30 minute observation with staff pass # The patient requires psychiatric inpatient admission at this time to assure safety, receive treatment and work toward stabilization. # Continue wellbutrin 150mg po daily # Continue propranolol 10mg BID # Continue seroquel 100mg qhs. # Family meeting took place today # Collaboration with Social Work # Continue Thiamine 200mg PO daily # Declined substance abuse rehabilitation #Goals before discharge include: Improve sleep, eliminate suicidal ideation Tentative Discharge: Sunday Sodium 138 mmol/L (135-145) 03/04/19 16:38 Potassium 5.0 mmol/L (3.5-5.0) 03/04/19 16:38 BUN 9 mg/dL (6-24) 03/04/19 16:38 Creatinine 0.77 mg/dL (0.67-1.17) 03/04/19 16:38 Hemoglobin A1c 5.2 % (4.0-5.6) 03/05/19 08:18 Calcium 9.3 mg/dL (8.6-10.3) 03/04/19 16:38 AST 85 U/L (13-39) H 03/04/19 16:38 ALT 99 U/L (7-52) H 03/04/19 16:38 Triglycerides 118 mg/dL 03/05/19 08:19 Cholesterol 150 mg/dL 03/05/19 08:19 LDL Cholesterol 56 mg/dL 03/05/19 08:19 On Sunday, Heather reports feeling much better on current medications and is looking forward to planning his discharge on Sunday. Continued Medication Management: Different Medication Medications: Current Medications Acetaminophen (Tylenol Tab*) 650 mg PO Q4H PRN PRN Reason: PAIN or TEMP > 101 F Al Hydrox/Mg Hydrox/Simethicone (Maalox Plus*) 30 ml PO Q4H PRN PRN Reason: INDIGESTION Bupropion HCl (Wellbutrin Tab*) 150 mg PO DAILY [facility] Last Admin: 03/08/19 08:35 Dose: 150 mg Folic Acid (Folvite Tab*) 1 mg PO DAILY [facility] Last Admin: 03/08/19 08:34 Dose: 1 mg Multivitamins (Theragran Tab*) 1 tab PO DAILY [facility] Last Admin: 03/08/19 08:34 Dose: 1 tab Propranolol HCl (Inderal Tab*) 10 mg PO BID [facility] Last Admin: 03/08/19 08:35 Dose: 10 mg Quetiapine Fumarate (Seroquel Tab*) 100 mg PO BEDTIME [facility] Last Admin: 03/07/19 20:41 Dose: 100 mg Thiamine HCl (Vitamin B-1 Tab*) 200 mg PO DAILY [facility] Last Admin: 03/08/19 08:34 Dose: 200 mg - Discharge Plan Discharge Plan: Outpatient Follow Up [facility]
[2019-03-08] MEDS: QUEtiapine TAB* 100 MG PO SCH (20:23)
[2019-03-09] MEDS: Propranolol TAB* 10 MG PO SCH ×2 (08:57→20:24)
[2019-03-09] MEDS: Thiamine TAB* 100 MG TAB PO SCH (08:57)
[2019-03-09] MEDS: buPROPion TAB* 100 MG PO SCH (08:57)
[2019-03-09] MEDS: Folic Acid TAB* 1 MG PO SCH (08:58)
[2019-03-09] MEDS: Vitamin THERAPEUTIC TAB PO SCH (08:58)
--- NOTE | 2019-03-09 13:23 | PN ---
Progress Note - Progress Note Date of Service: 03/09/19 Note: Magnus reports inadequate effect against insomnia of 100 mg Seroquel, requests increased dose. Ordered dose increase to 150 mg HS of Seroquel.
[2019-03-09] MEDS ORDERED: QUEtiapine TAB* 100 MG PO SCH (21:00)
[2019-03-10 08:42] VITALS: BP 138/80
[2019-03-10] MEDS: Thiamine TAB* 100 MG TAB PO SCH (08:50)
[2019-03-10] MEDS: Folic Acid TAB* 1 MG PO SCH (08:50)
[2019-03-10] MEDS: buPROPion TAB* 100 MG PO SCH (08:51)
[2019-03-10] MEDS: Propranolol TAB* 10 MG PO SCH (08:51)
[2019-03-10] MEDS: Vitamin THERAPEUTIC TAB PO SCH (08:52)
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
== END 2019-03-10 11:30 | disposition home or self-care (01) | DRG 775 ==
LOC: ED 16:16 → BSU 21:36
PROVIDERS: ADMIT Psychiatry & Neurology Psychiatry; ATTEND Psychiatry & Neurology Psychiatry
DX: F10.94 Alcohol use, unspecified with alcohol-induced mood disorder (principal); R45.851 Suicidal ideations; F43.10 Post-traumatic stress disorder, unspecified; F90.9 Attention-deficit hyperactivity disorder, unspecified type; F41.9 Anxiety disorder, unspecified; Y90.0 Blood alcohol level of less than 20 mg/100 ml; G47.00 Insomnia, unspecified; Z88.8 Allergy status to other drugs, medicaments and biological substances; Z28.21 Immunization not carried out because of patient refusal
CPT/HCPCS: 36415; 80053; 80061; 80307; 80320; 80329; 81003; 81015; 83036; 84443; 85025; 87086; 99222; 99231; 99233; 99238; 99285; A9270-GY; G0480

== ENCOUNTER 2019-03-26 09:33 | Emergency (ER) | payer OTHER ==
--- NOTE | 2019-03-26 10:01 | ED ---
Skin Complaint - HPI Summary HPI Summary: 24-year-old male presents to emergency department complaining of a rash which began one week ago. Patient arrives via EMS as he believes he is having allergic reaction to Seroquel, which he was placed on 1 week ago. Patient states the rash began on his back and is now overlying his back, chest, proximal upper extremities. Patient states the rash is very pruritic and beginning to hurt. Patient denies fever, chest pain, abdominal pain, shortness breath, pain with urination, diarrhea. He has not taken any medication prior to arrival. - History of Current Complaint Chief Complaint: EDRashSkinAbscess Time Seen by Provider: 03/26/19 09:44 Stated Complaint: ALLERGIC REACTION PER EMS Hx Obtained From: Patient Onset/Duration: Started Weeks Ago Skin Exposure Onset/Duration: Weeks Ago Timing: Constant Onset Severity: Moderate Current Severity: Moderate Pain Intensity: 5 Pain Scale Used: 0-10 Numeric Skin Location: Diffuse, Chest, Arm, Abdomen Character: Pruritus, Pain, Redness, Raised Aggravating Symptom(s): Clothing, Touch - Additional Pertinent History Primary Care Physician: [id number] - Allergy/Home Medications Allergies/Adverse Reactions: Allergies Allergy/AdvReac Type Severity Reaction Status Date / Time No Known Allergies Allergy Verified 03/26/19 09:50 PMH/Surg Hx/FS Hx/Imm Hx Endocrine/Hematology History: Denies: Hx Diabetes Cardiovascular History: Denies: Hx Hypercholesterolemia, Hx Hypertension, Hx Pacemaker/ICD Respiratory History: Denies: Hx Asthma GI History: Reports: Hx Gastroesophageal Reflux Disease, Other GI Disorders - h pylori History: Denies: Hx Dialysis Sensory History: Reports: Hx Contacts or Glasses Denies: Hx Legally Blind, Hx Deafness, Hx Hearing Aid Opthamlomology History: Reports: Hx Contacts or Glasses Denies: Hx Legally Blind Psychiatric History: Reports: Hx Anxiety, Hx Attention Deficit Hyperactivity Disorder, Hx Depression, Hx Post Traumatic Stress Disorder, Hx Community Mental Health Tx - CAPS Denies: Hx Eating Disorder, Hx Inpatient Treatment, Hx of Violent Episodes Against Others - Surgical History Surgery Procedure, Year, and Place: none Infectious Disease History: No Infectious Disease History: Denies: Traveled Outside the [place] in Last 30 Days - Family History Known Family History: Positive: Hypertension - father, Renal Disease - mother, Respiratory Disease - asthma in sister - Social History Alcohol Use: Rare Alcohol Amount: mixed drinks tonight Hx Substance Use: No Substance Use Type: Reports: None Hx Tobacco Use: No Smoking Status (MU): Never Smoked Tobacco Review of Systems Constitutional: Negative Eyes: Negative ENT: Negative Cardiovascular: Negative Respiratory: Negative Gastrointestinal: Negative Genitourinary: Negative Musculoskeletal: Negative Positive: Rash Neurological: Negative Positive: Anxious All Other Systems Reviewed And Are Negative: Yes Physical Exam Triage Information Reviewed: Yes Vital Signs On Initial Exam: Initial Vitals Temp Pulse Resp BP Pulse Ox 98.3 F 120 16 109/75 97 03/26/19 09:46 03/26/19 09:46 03/26/19 09:46 03/26/19 09:46 03/26/19 09:46 Vital Signs Reviewed: Yes Appearance: Positive: Well-Appearing, No Pain Distress, Well-Nourished Skin: Positive: Warm, Skin Color Reflects Adequate Perfusion, Scaly Skin/Lesions , Other - Patient back, chest, abdomen, proximal upper extremities bilaterally are covered in a diffuse scaly circumferential rash with raised borders consistent with tinea corporis. No evidence of bullae or drainage. There is evidence of excoriation throughout. Eyes: Positive: Normal, EOMI, VALDO ENT: Positive: Hearing grossly normal Respiratory/Lung Sounds: Positive: Clear to Auscultation, Breath Sounds Present Cardiovascular: Positive: RRR, S1, S2 Abdomen Description: Positive: Nontender, Soft Bowel Sounds: Positive: Present Musculoskeletal: Positive: Strength/ROM Intact Neurological: Positive: Sensory/Motor Intact, Alert, Oriented to Person Place, Time, Normal Gait, Speech Normal Psychiatric: Positive: Normal AVPU Assessment: Alert Procedures - Sedation Patient Received Moderate/Deep Sedation with Procedure: No Diagnostics - Vital Signs Vital Signs Temp Pulse Resp BP Pulse Ox 03/26/19 09:46 98.3 F 120 16 109/75 97 - Laboratory Lab Statement: Any lab studies that have been ordered have been reviewed, and results considered in the medical decision making process. Course/Dx - Course Course Of Treatment: Patient was evaluated in the emergency Department for rash. Patient was seen and examined vitals are stable and afebrile. Physical exam is consistent with tinea corporis. Patient deferred Benadryl for pruritus. Patient was given a prescription for clotrimazole cream to be applied to all affected body surface areas twice daily and follow up with dermatology for oral antifungal treatment and liver function monitoring. Patient agrees to this plan. - Differential Diagnoses - Skin Complaint Differential Diagnoses: Anaphylaxis, Drug Rash, Eczema, Scabies, Tinea - Diagnoses Provider Diagnoses: Tinea corporis Discharge ED - Sign-Out/Discharge Documenting (check all that apply): Patient Departure - Discharge Plan Condition: Stable Disposition: HOME Prescriptions: Clotrimazole 1% CREAM* [Clotrimazole 1%*] 1 applic TOPICAL BID #1 tube diPHENhydraMINE PO* [Benadryl PO 50 MG CAP*] 50 mg PO BEDTIME PRN #12 cap PRN Reason: Rash Patient Education Materials: Tinea Corporis (ED) Referrals: No Primary Care Phys,NOPCP [Primary Care Provider] - Additional Instructions: [facility] [place]: [facility] , [address]: [facility] You were seen in the emergency department today for rash. This is not an allergic drug reaction. This rash has a fungus called tinea corporis. Please take 50 mg Benadryl daily to reduce itching. I sent a prescription for antifungal clotrimazole cream to your pharmacy which is to be applied to all affected areas twice a day. Above I have placed information for [facility] with whom you need to follow up with for further evaluation and management. Due to the extent of the fungal infection you require oral antifungal medication which needs to be prescribed by dispatch clerk. Please return to the emergency department immediately if you develop any new or worsening symptoms. - Billing Disposition and Condition Condition: STABLE Disposition: Home
[2019-03-26] MEDS ORDERED: diPHENhydraMINE PO* 50 MG PO ONE (10:06)
[2019-03-26 10:31] VITALS: BP 116/55
== END 2019-03-26 10:30 | disposition home or self-care (01) ==
LOC: ED 09:33
DX: B35.4 Tinea corporis (principal); K21.9 Gastro-esophageal reflux disease without esophagitis; F41.9 Anxiety disorder, unspecified; F90.9 Attention-deficit hyperactivity disorder, unspecified type; F43.10 Post-traumatic stress disorder, unspecified
CPT/HCPCS: 99282

== ENCOUNTER 2019-03-30 04:25 | Emergency (ER) | payer OTHER ==
--- NOTE | 2019-03-30 04:42 | ED ---
Psychiatric Complaint - HPI Summary HPI Summary: Patient is a 24 y/o M presenting to the ED for a psychiatric complaint. Patient reports recent stress lately. He admits drinking 3 beers on 03/30/19 to help him sleep. On triage, patient reported feeling unsafe and threatened. 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 He is being harassed online by those who reply to the articles he writes. He states sleeping is his method to cope with this recent stress. Patient also notes a rash on the chest, neck, and back. He believes that the rash is a reaction to taking Seroquel, but states he saw his PCP who told him he could possibly have a fungal infection. He sees a psychiatrist for his mental health problems. - History Of Current Complaint Chief Complaint: EDMentalHealth Hx Obtained From: Patient Onset/Duration: Sudden Onset, Still Present Timing: Constant Severity Initially: Moderate Severity Currently: Moderate Aggravating Factor(s): Recent Stress Alleviating Factor(s): Nothing Associated Signs And Symptoms: Positive: Sleep Disturbance Related History: Positive For: Prior Psychiatric Issues - Allergies/Home Medications Allergies/Adverse Reactions: Allergies Allergy/AdvReac Type Severity Reaction Status Date / Time No Known Allergies Allergy Verified 03/30/19 04:29 Home Medications: Home Medications Adderall 20 mg Tablet 20 mg PO DAILY 03/30/19 [History Confirmed 03/30/19] hydrOXYzine HCL [Hydroxyzine HCl] 25 mg PO BID PRN 03/30/19 [History Confirmed 03/30/19] PMH/Surg Hx/FS Hx/Imm Hx Previously Healthy: Yes Endocrine/Hematology History: Denies: Hx Diabetes Cardiovascular History: Denies: Hx Hypercholesterolemia, Hx Hypertension, Hx Pacemaker/ICD Respiratory History: Denies: Hx Asthma GI History: Reports: Hx Gastroesophageal Reflux Disease, Other GI Disorders - h pylori History: Denies: Hx Dialysis Sensory History: Reports: Hx Contacts or Glasses Denies: Hx Legally Blind, Hx Deafness, Hx Hearing Aid Opthamlomology History: Reports: Hx Contacts or Glasses Denies: Hx Legally Blind EENT History: Denies: Hx Deafness Psychiatric History: Reports: Hx Anxiety, Hx Attention Deficit Hyperactivity Disorder, Hx Depression, Hx Post Traumatic Stress Disorder, Hx Community Mental Health Tx - CAPS Denies: Hx Eating Disorder, Hx Inpatient Treatment, Hx of Violent Episodes Against Others - Surgical History Surgical History: None Surgery Procedure, Year, and Place: none Infectious Disease History: No Infectious Disease History: Denies: Traveled Outside the [place] in Last 30 Days - Family History Known Family History: Positive: Hypertension - father, Renal Disease - mother, Respiratory Disease - asthma in sister - Social History Occupation: Student Lives: Alone Alcohol Use: Weekly Alcohol Amount: mixed drinks tonight Hx Substance Use: No Substance Use Type: Reports: None Hx Tobacco Use: No Smoking Status (MU): Never Smoked Tobacco Review of Systems Positive: Rash - Back, chest, and neck Neurological: Other - Positive sleep disturbance Psychological: Other - Positive feeling of being unsafe and threatened All Other Systems Reviewed And Are Negative: Yes Physical Exam - Summary Physical Exam Summary: Appearance: Well-appearing, Well-nourished, lying in bed comfortable Skin: Warm, dry, patchy plaques on the back extending to the sides of the torso consistent with psoriasis. Eyes: sclera anicteric, no conjunctival pallor ENT: mucous membranes moist Neck: deferred Respiratory: No signs of respiratory distress Cardiovascular: Appears well perfused, pulses are nml Abdomen: deferred Musculoskeletal: Moving all 4 extremities without obvious discomfort Neurological: Awake and alert, mentation is normal, speech is fluent and appropriate Psychiatric: affect is normal, does not appear anxious or depressed Triage Information Reviewed: Yes Vital Signs On Initial Exam: Initial Vitals Temp Pulse Resp BP Pulse Ox 99.3 F 122 15 140/89 96 03/30/19 04:27 03/30/19 04:27 03/30/19 04:27 03/30/19 04:27 03/30/19 04:27 Vital Signs Reviewed: Yes Procedures - Sedation Patient Received Moderate/Deep Sedation with Procedure: No Diagnostics - Vital Signs Vital Signs Temp Pulse Resp BP Pulse Ox 03/30/19 04:27 99.3 F 122 15 140/89 96 - Laboratory Result Diagrams: 03/30/19 04:57 03/30/19 04:57 Lab Statement: Any lab studies that have been ordered have been reviewed, and results considered in the medical decision making process. - EKG 04:58 Cardiac Rate: Tachycardia - 108 BPM EKG Rhythm: Sinus Tachycardia ST Segment: Normal Ectopy: None Summary of EKG Findings: EKG at 04:58 shows 108 BPM with sinus tachycardia, baseline wander in lead V3, no STEMI. Reviewed and interpreted by Dr. Roldan. Re-Evaluation - Re-Evaluation First Eval Re-Evaluation Time: 04:49 Change: Unchanged Comment: At 04:49, patient is awaiting a mental health evaluation pending sobriety. Course/Dx - Course Course Of Treatment: Patient is a 24 y/o M presenting to the ED for a psychiatric complaint. Patient reports recent stress lately. He admits drinking 3 beers on 03/30/19 to help him sleep. On triage, patient reported feeling unsafe and threatened. 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 He is being harassed online by those who reply to the articles he writes. He states sleeping is his method to cope with this recent stress. Patient also notes a rash on the chest, neck, and back. He believes that the rash is a reaction to taking Seroquel, but states he saw his PCP who told him he could possibly have a fungal infection. He sees a psychiatrist for his mental health problems. On exam, patchy plaques on the back extending to the sides of the torso, consistent with psoriasis. At 04:49, patient is awaiting a mental health evaluation pending sobriety. In the ED course, patient was given clotrimazole 1 applic TOPICAL, diflucan 150 mg PO, and Atarax 25 mg PO. EKG at 04:58 shows 108 BPM with sinus tachycardia, baseline wander in lead V3, no STEMI. Laboratory abnormal findings: MCV 96, MCH 34, MPV 7.0, glucose 119, AST 88, ALT 87, urine blood 1+, urine amphetamines screen presumptive positive, serum alcohol 353. Patient is a sign- out at 07:00 on 03/30/[address] Jose Roldan MD to Dr. New Horton MD at shift change, pending sobriety, mental health evaluation, and disposition. It should be noted that at discharge, either from the ED or [facility], he would benefit from a prescription for diflucan, 150 mg weekly for 6 weeks to treat his tinea corporis. - Differential Dx/Clinical Impression Provider Diagnosis: Alcohol intoxication, Post-traumatic stress disorder, acute Discharge ED - Sign-Out/Discharge Documenting (check all that apply): Sign-Out Patient Signing out patient TO: New Horton - Patient is a sign-out at 07:[address] Jose Roldan MD to Dr. New Horton MD at shift change, pending sobriety, mental health evaluation, and disposition. - Discharge Plan Referrals: [facility] [Outside] - Attestation Statements Document Initiated by Scribe: Yes Documenting Scribe: Claudia Buchanan Provider For Whom Richard is Documenting (Include Credential): Jose Roldan MD Scribe Attestation: IClaudia, scribed for Jose Roldan MD on 03/30/19 at 0653. Scribe Documentation Reviewed: Yes Provider Attestation: The documentation as recorded by the Claudia harrington accurately reflects the service I personally performed and the decisions made by me, Jose Roldan MD Status of Scribe Document: Viewed
[2019-03-30] MEDS ORDERED: Clotrimazole 1% CREAM* 30 GM TOPICAL ONE (04:54)
[2019-03-30] MEDS ORDERED: Fluconazole 150 MG TAB PO ONE (04:55)
[2019-03-30 05:05] LABS: Urine Appearance Clear; Urine Bilirubin Negative (Negative); Urine Blood 1+ (Negative); Urine Color Yellow; Urine Glucose Negative (Negative); Urine Ketones Negative (Negative); Urine Nitrite Negative (Negative); Urine Protein Negative (Negative); Urine Specific Gravity 1.011 (1.010-1.030); Urine Urobilinogen Negative (Negative)
[2019-03-30 05:06] LABS: Urine Bacteria Absent (Absent); Urine Red Blood Cell Trace(0-2/hpf) (Absent); Urine White Blood Cell Trace(0-5/hpf) (Absent)
[2019-03-30 05:10] LABS: ABS Lymphocytes 1.7 10^3/ul (1.0-4.8); ABS Monocytes 0.4 10^3/ul (0-0.8); ABS Neutrophils 3.3 10^3/ul (1.5-7.7); Eosinophil % 0.2 %; Hematocrit 42 % (42-52); Hemoglobin 14.9 g/dL (14.0-18.0); Lymphocyte % 31.4 %; Mean Corpuscular HGB Conc 35 g/dL (31-36); Mean Corpuscular Hemoglobin 34 pg (27-31); Mean Corpuscular Volume 96 fL (80-94); Nucleated Red Blood Cells % 0.1; Platelet Count 336 10^3/uL (150-450); Red Blood Count 4.39 10^6 /uL (4.18-5.48); Red Cell Distribution Width 13 % (10-15); White Blood Count 5.7 10^3/uL (3.5-10.8)
[2019-03-30 05:19] LABS: ALT 87 U/L (7-52); AST 88 U/L (13-39); Albumin 4.5 g/dL (3.2-5.2); Albumin/Globulin Ratio 1.7 (1-3); Alkaline Phosphatase 99 U/L (34-104); Anion Gap 9 mmol/L (2-11); BUN/Creatinine Ratio 8.6 (8-20); Blood Urea Nitrogen 7 mg/dL (6-24); CO2 Carbon Dioxide 28 mmol/L (22-32); Calcium 8.9 mg/dL (8.6-10.3); Chloride 104 mmol/L (101-111); EGFR African American 144.2 (>60); EGFR Non-African American 119.2 (>60); Globulin 2.7 g/dL (2-4); Glucose 119 mg/dL (70-100); Potassium 3.5 mmol/L (3.5-5.0); Sodium 141 mmol/L (135-145); Total Protein 7.2 g/dL (6.4-8.9)
[2019-03-30 05:23] LABS: Urine Benzodiazepine Screen None Detected (None Detect); Urine Opiates Screen None Detected (None Detect)
[2019-03-30 05:50] LABS: Acetaminophen < 15 mcg/mL; Alcohol 353 mg/dL (<10); Salicylate < 2.50 mg/dL (<30)
[2019-03-30 06:04] LABS: TSH (Thyroid Stimulating Horm) 2.28 mcIU/mL (0.34-5.60)
[2019-03-30] MEDS ORDERED: hydrOXYzine HCL TAB* 25 MG PO ONE ×2 (06:20→07:43)
--- NOTE | 2019-03-30 06:55 | ED ---
Progress - Progress Note Progress Note: Patient is a sign-out at 07:00 on 03/30/[address] Jose Roldan MD to Dr. New Horton MD at shift change, pending sobriety, mental health evaluation, and disposition. Re-Evaluation - Re-Evaluation First Eval Re-Evaluation Time: 04:49 Change: Unchanged Comment: At 04:49, patient is awaiting a mental health evaluation pending sobriety. 2nd eval Re-Evaluation Time: 15:50 Comment: Per Dr. Christy, pt to be d/c'ed with dx of mood disorder. Course/Dx - Course Course Of Treatment: Patient signed out to myself from Dr. Esparza pending mental health evaluation. Patient was clear from his alcohol at 3 PM. Mental health evaluation was performed and patient was deemed appropriate for outpatient treatment. - Diagnoses Provider Diagnoses: Mood disorder Discharge ED - Sign-Out/Discharge Documenting (check all that apply): Patient Departure, Receiving Sign-Out Receiving patient FROM: Jose Roldan - Discharge Plan Condition: Stable Disposition: HOME Referrals: [facility] [Outside] - Billing Disposition and Condition Condition: STABLE Disposition: Home - Attestation Statements Document Initiated by Moonibe: Yes Documenting Scribe: Tommy Cruz Provider For Whom Richard is Documenting (Include Credential): New Horton MD Scribe Attestation: Tommy Mera, scribed for New Horton MD on 03/30/19 at 1717. Scribe Documentation Reviewed: Yes Provider Attestation: The documentation as recorded by the Tommy harrington accurately reflects the service I personally performed and the decisions made by , New Horton MD Status of Scribe Document: Viewed
--- NOTE | 2019-03-30 13:22 | PN ---
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 Objective: young male in blue scrubs, sleeping in room Assessment: Substance Induced Mood DO Plan: Patient will be evaluated by the Crisis MH service here in the ED pending his sobriety. Vital Signs Temp Pulse Resp BP Pulse Ox 98.6 F 103 16 117/66 96 03/30/19 10:23 03/30/19 10:23 03/30/19 10:23 03/30/19 10:23 03/30/19 10:23 Lab Results - Entire Visit 03/30/19 03/30/19 03/30/19 04:57 04:57 04:50 WBC 5.7 RBC 4.39 Hgb 14.9 Hct 42 MCV 96 H MCH 34 H MCHC 35 RDW 13 Plt Count 336 MPV 7.0 L Neut % (Auto) 60.1 Lymph % (Auto) 31.4 [place] % (Auto) 7.4 Eos % (Auto) 0.2 Baso % (Auto) 0.9 Absolute Neuts (auto) 3.3 Absolute Lymphs (auto) 1.7 Absolute Monos (auto) 0.4 Absolute Eos (auto) 0.0 Absolute Basos (auto) 0.0 Absolute Nucleated RBC 0.0 Nucleated RBC % 0.1 Sodium 141 Potassium 3.5 Chloride 104 Carbon Dioxide 28 Anion Gap 9 BUN 7 Creatinine 0.81 Est GFR ( Amer) 144.2 Est GFR (Non-Af Amer) 119.2 BUN/Creatinine Ratio 8.6 Glucose 119 H Calcium 8.9 Total Bilirubin 0.40 AST 88 H ALT 87 H Alkaline Phosphatase 99 Total Protein 7.2 Albumin 4.5 Globulin 2.7 Albumin/Globulin Ratio 1.7 TSH 2.28 Urine Color Urine Appearance Urine pH Ur Specific [place] Urine Protein Urine Ketones Urine Blood Urine Nitrate Urine Bilirubin Urine Urobilinogen Ur Leukocyte Esterase Urine WBC (Auto) Urine RBC (Auto) Urine Bacteria Urine Glucose Salicylates < 2.50 Urine Opiates Screen None detected Acetaminophen < 15 Ur Barbiturates Screen None detected Ur Phencyclidine Scrn None detected Ur Amphetamines Screen Presumptive positive A U Benzodiazepines Scrn None detected Urine Cocaine Screen None detected U Cannabinoids Screen None detected Serum Alcohol 353 H 03/30/19 04:50 WBC RBC Hgb Hct MCV MCH MCHC RDW Plt Count MPV Neut % (Auto) Lymph % (Auto) [place] % (Auto) Eos % (Auto) Baso % (Auto) Absolute Neuts (auto) Absolute Lymphs (auto) Absolute Monos (auto) Absolute Eos (auto) Absolute Basos (auto) Absolute Nucleated RBC Nucleated RBC % Sodium Potassium Chloride Carbon Dioxide Anion Gap BUN Creatinine Est GFR ( Amer) Est GFR (Non-Af Amer) BUN/Creatinine Ratio Glucose Calcium Total Bilirubin AST ALT Alkaline Phosphatase Total Protein Albumin Globulin Albumin/Globulin Ratio TSH Urine Color Yellow Urine Appearance Clear Urine pH 6.0 Ur Specific [place] 1.011 Urine Protein Negative Urine Ketones Negative Urine Blood 1+ A Urine Nitrate Negative Urine Bilirubin Negative Urine Urobilinogen Negative Ur Leukocyte Esterase Negative Urine WBC (Auto) Trace(0-5/hpf) Urine RBC (Auto) Trace(0-2/hpf) Urine Bacteria Absent Urine Glucose Negative Salicylates Urine Opiates Screen Acetaminophen Ur Barbiturates Screen Ur Phencyclidine Scrn Ur Amphetamines Screen U Benzodiazepines Scrn Urine Cocaine Screen U Cannabinoids Screen Serum Alcohol
[2019-03-30 16:21] VITALS: BP 129/83
== END 2019-03-30 16:22 | disposition home or self-care (01) ==
LOC: ED 04:25
DX: F10.129 Alcohol abuse with intoxication, unspecified (principal); F43.11 Post-traumatic stress disorder, acute; R00.0 Tachycardia, unspecified; F39 Unspecified mood [affective] disorder; F19.94 Other psychoactive substance use, unspecified with psychoactive substance-induced mood disorder; R21 Rash and other nonspecific skin eruption; F90.9 Attention-deficit hyperactivity disorder, unspecified type; F41.9 Anxiety disorder, unspecified
CPT/HCPCS: 36415; 80053; 80307; 80320; 80329; 81003; 81015; 84443; 85025; 87086; 93005; 99282; A9270-GY; G0480

== ENCOUNTER 2019-04-29 02:54 | Inpatient (IN) | payer OTHER ==
--- NOTE | 2019-04-29 03:03 | ED ---
Psychiatric Complaint - HPI Summary HPI Summary: Patient is a 24 y/o M presenting to the ED via EMS on a 941 for a psychiatric complaint. Per state police, patients friend called police after the patient was yelling and expressing SI. Patient does not recall how he got to [facility]. He admits SI and insomnia. Patient denies fever, headache, or myalgia. Any aggravating or alleviating factors are denied. Patient admits alcohol use, last on 04/29/19, and Adderall use. - History Of Current Complaint Time Seen by Provider: 04/29/19 02:59 Hx Obtained From: Patient Onset/Duration: Sudden Onset, Still Present Timing: Constant Severity Initially: Moderate Severity Currently: Moderate Character: Depressed Aggravating Factor(s): Nothing Alleviating Factor(s): Nothing Associated Signs And Symptoms: Positive: Sleep Disturbance - Insomnia Related History: Positive For: Prior Psychiatric Issues Has Suicidal: Reports: Thoughts Ingestion History: Type/Name Of Drug - Alcohol and Adderall - Allergies/Home Medications Allergies/Adverse Reactions: Allergies Allergy/AdvReac Type Severity Reaction Status Date / Time No Known Allergies Allergy Verified 03/30/19 04:29 Home Medications: Home Medications Omeprazole 20 mg PO DAILY 04/29/19 [History Confirmed 04/29/19] cloNIDine HCl [Catapres 0.2 MG TAB] 0.2 mg PO DAILY 04/29/19 [History Confirmed 04/29/19] PMH/Surg Hx/FS Hx/Imm Hx Previously Healthy: Yes Endocrine/Hematology History: Denies: Hx Diabetes Cardiovascular History: Denies: Hx Hypercholesterolemia, Hx Hypertension, Hx Pacemaker/ICD Respiratory History: Denies: Hx Asthma GI History: Reports: Hx Gastroesophageal Reflux Disease, Other GI Disorders - h pylori History: Denies: Hx Dialysis Sensory History: Reports: Hx Contacts or Glasses Denies: Hx Legally Blind, Hx Deafness, Hx Hearing Aid Opthamlomology History: Reports: Hx Contacts or Glasses Denies: Hx Legally Blind EENT History: Denies: Hx Deafness Psychiatric History: Reports: Hx Anxiety, Hx Attention Deficit Hyperactivity Disorder, Hx Depression, Hx Post Traumatic Stress Disorder, Hx Community Mental Health Tx - CAPS Denies: Hx Eating Disorder, Hx Inpatient Treatment, Hx of Violent Episodes Against Others - Surgical History Surgical History: None Surgery Procedure, Year, and Place: none Infectious Disease History: No - Family History Known Family History: Positive: Hypertension - father, Renal Disease - mother, Respiratory Disease - asthma in sister - Social History Occupation: Student Lives: Alone Alcohol Use: Weekly Alcohol Amount: n/a Hx Substance Use: No Substance Use Type: Reports: None Hx Tobacco Use: No Smoking Status (MU): Never Smoked Tobacco Review of Systems - ROS Summary Review of Systems Summary: Propranolol HCl 10 mg PO BID #60 tablet 03/10/19 [Rx Confirmed 03/30/19] Quetiapine Fumarate [Seroquel 200 MG] 200 mg PO BEDTIME #30 tablet 03/10/19 [Rx Confirmed 03/30/19] diPHENhydraMINE PO* [Benadryl PO 50 MG CAP*] 50 mg PO BEDTIME PRN #12 cap [Rx Confirmed 03/30/19] Adderall 20 mg Tablet 20 mg PO DAILY 03/30/19 [History Confirmed 03/30/19] hydrOXYzine HCL [Hydroxyzine HCl] 25 mg PO BID PRN 03/30/19 [History Confirmed 03/30/19] Negative: Fever Negative: Myalgia Negative: Headache Psychological: Other - Positive SI and insomnia All Other Systems Reviewed And Are Negative: Yes Physical Exam - Summary Physical Exam Summary: General: Well-developed, thin MALE. No acute distress. HEENT: Normocephalic, Atraumatic. Eyes: Conjuctiva normal, PERRL. Oropharynx: Clear, mucous membranes moist, (-) exudates. Neck: Soft, FROM, (-) lymphadenopathy, (-) thyromegaly, (-) JVD. Cardiovascular: Normal sinus rhythm, (-) murmur. Lungs: Clear to auscultation bilaterally (-) wheezes, (-) rales, (-) rhonchi. Abdomen: Soft, non-tender, non-distended, (-) organomegaly, normal bowel sounds. Back: (-) CVA tenderness Extremities: No edema. Skin: Warm, dry, (-) rash. Neuro: Unable to assess. Psychiatric: Moderately agitated and restless in the bed. Odd affect. Triage Information Reviewed: Yes Vital Signs Reviewed: Yes Procedures - Sedation Patient Received Moderate/Deep Sedation with Procedure: No Diagnostics - Laboratory Result Diagrams: 04/29/19 03:38 04/29/19 03:38 Lab Statement: Any lab studies that have been ordered have been reviewed, and results considered in the medical decision making process. Re-Evaluation - Re-Evaluation First Eval Re-Evaluation Time: 04:46 Change: Unchanged Comment: At 04:46, patient will be given Ativan for agitation. Course/Dx - Course Course Of Treatment: 24-year-old male presents with what appears to be a psychotic episode. Patient admits to alcohol and Adderall abuse. States he is unable to sleep. Patient with significant agitation. Ativan given. No significant findings on exam. Patient was acute alcohol intoxication. Cannabinoids and amphetamines in his urine. Patient signout change shift awaiting sobriety and mental health evaluation. - Differential Dx/Clinical Impression Provider Diagnosis: Psychotic episode, Substance abuse Discharge ED - Sign-Out/Discharge Documenting (check all that apply): Sign-Out Patient Signing out patient TO: Maureen Alvarez - Patient is a sign-out at 07:00 on 04/29/[address] Grazyna Buckley MD to Dr. Maureen Alvarez MD, at shift change, pending mental health evaluation and disposition. - Discharge Plan Condition: Stable [facility] - - Billing Disposition and Condition Condition: STABLE - Attestation Statements Document Initiated by Moonibe: Yes Documenting Scribe: Claudia Buchanan Provider For Whom Richard is Documenting (Include Credential): Grazyna Buckley MD Scribe Attestation: Claudia Mera, scribed for Grazyna Buckley MD on 04/29/19 at 0539. Scribe Documentation Reviewed: Yes Provider Attestation: The documentation as recorded by the Claudia harrington accurately reflects the service I personally performed and the decisions made by me, Grazyna Buckley MD Status of Scribe Document: Viewed
[2019-04-29 04:01] LABS: Urine Appearance Clear; Urine Bilirubin Negative (Negative); Urine Blood 2+ (Negative); Urine Color Yellow; Urine Glucose Negative (Negative); Urine Ketones 1+ (Negative); Urine Nitrite Negative (Negative); Urine Protein 1+(30 mg/dL) (Negative); Urine Specific Gravity 1.016 (1.010-1.030); Urine Urobilinogen Negative (Negative)
[2019-04-29 04:02] LABS: ABS Lymphocytes 0.9 10^3/ul (1.0-4.8); ABS Monocytes 0.6 10^3/ul (0-0.8); ABS Neutrophils 15.5 10^3/ul (1.5-7.7); Hematocrit 43 % (42-52); Hemoglobin 14.2 g/dL (14.0-18.0); Lymphocyte % 5.3 %; Mean Corpuscular HGB Conc 33 g/dL (31-36); Mean Corpuscular Hemoglobin 34 pg (27-31); Mean Corpuscular Volume 102 fL (80-94); Mean Platelet Volume 7.7 fL (7.4-10.4); Platelet Count 356 10^3/uL (150-450); Red Blood Count 4.23 10^6 /uL (4.18-5.48); Red Cell Distribution Width 13 % (10-15)
[2019-04-29 04:11] LABS: ALT 75 U/L (7-52); AST 76 U/L (13-39); Albumin 4.6 g/dL (3.2-5.2); Albumin/Globulin Ratio 1.6 (1-3); Alkaline Phosphatase 106 U/L (34-104); Blood Urea Nitrogen 14 mg/dL (6-24); Calcium 8.3 mg/dL (8.6-10.3); Chloride 101 mmol/L (101-111); EGFR African American 94.3 (>60); Globulin 2.8 g/dL (2-4); Glucose 69 mg/dL (70-100); Potassium 3.3 mmol/L (3.5-5.0); Sodium 138 mmol/L (135-145); Total Protein 7.4 g/dL (6.4-8.9)
[2019-04-29 04:11] LABS: Urine Benzodiazepine Screen None Detected (None Detect); Urine Opiates Screen None Detected (None Detect)
[2019-04-29 04:12] LABS: Acetaminophen < 15 mcg/mL; Alcohol 128 mg/dL (<10); Salicylate < 2.50 mg/dL (<30)
[2019-04-29 04:13] LABS: Urine Bacteria Absent (Absent); Urine Red Blood Cell 1+(3-5/hpf) (Absent); Urine White Blood Cell Trace(0-5/hpf) (Absent)
[2019-04-29 04:25] LABS: TSH (Thyroid Stimulating Horm) 0.42 mcIU/mL (0.34-5.60)
[2019-04-29 04:37] LABS: CO2 Carbon Dioxide < 7 mmol/L (22-32)
[2019-04-29] MEDS ORDERED: LORazepam INJ* 2 MG/ML 1 ML VIAL IVPB ONE (04:46)
[2019-04-29] MEDS ORDERED: Lorazepam PYXIS KEY PRN (04:46)
[2019-04-29] MEDS ORDERED: LORazepam INJ* 2 MG/ML 1 ML VIAL ONE (05:00)
[2019-04-29] MEDS ORDERED: Dextrose 50% VIAL 50 ml IV PUSH PRN (06:23)
[2019-04-29] MEDS ORDERED: Pantoprazole IV* 40 MG IV ONE (06:34)
[2019-04-29] MEDS ORDERED: KCL 10 MEQ/50 ML IVPREMIX* 10 MEQ/50 ML BAG IV ONE (06:45)
[2019-04-29 06:59] LABS: BUN/Creatinine Ratio 13.1 (8-20); Calcium 8.5 mg/dL (8.6-10.3); EGFR African American 114.4 (>60); EGFR Non-African American 94.5 (>60); Potassium 4.8 mmol/L (3.5-5.0)
[2019-04-29] MEDS ORDERED: Ondansetron INJ* 2 MG/ML VIAL IV ONE (07:36)
[2019-04-29] MEDS ORDERED: NS 0.9% 1000 ML** 1,000 ML IV ONE ×2 (07:36→09:03)
--- NOTE | 2019-04-29 07:40 | ED ---
Progress - Progress Note Progress Note: This pt is a sign out to Dr. Alvarez from Dr. Buclkey at shift change 0700 04/29 pending MHE and disposition. - Results/Orders Results/Orders: CT A/P 1. FATTY INFILTRATION OF THE LIVER. 2. BILATERAL PARS DEFECTS AT L5. 3. THERE IS MUCOSAL THICKENING OF THE DISTAL ESOPHAGUS. 4. OTHERWISE, NO ACUTE CT PATHOLOGY OF THE VISUALIZED ABDOMEN AND PELVIS. ED physician has reviewed this report. Re-Evaluation - Re-Evaluation First Eval Re-Evaluation Time: 07:58 Change: Worse Comment: Pt has been complaining of vomiting and abdominal discomfort. He will receive additional work up to r/o alcoholic ketoacidosis. Labs notable for significant dec bicarb, gap 26, elevated WBC. Plan for IVF, PO trial. Possible CT if still having pain. Course/Dx - Course Course Of Treatment: This pt is a sign out to Dr. Alvarez from Dr. Buckley at shift change 0700 04/29/2019 pending MHE and disposition. patient's repeat labs notable for improved bicarbonate, anion gap. Patient still reporting nausea, minimal by mouth intake, concern for alcoholic ketoacidosis. Admit to [facility] - Diagnoses Provider Diagnoses: Psychotic episode, Substance abuse, Alcoholic ketoacidosis, LLQ abdominal pain , Metabolic acidosis - Provider Notifications Discussed Care Of Patient With: Rosaura Nelson Time Discussed With Above Provider: 11:09 Instructed by Provider To: Admit As Inpatient Admit/Transition Orders Completed By ED Provider: Yes Discharge ED - Sign-Out/Discharge Documenting (check all that apply): Patient Departure - admitted, Receiving Sign -Out Receiving patient FROM: Grazyna Buckley - Discharge Plan Condition: Stable Disposition: ADMITTED TO [facility] - Billing Disposition and Condition Condition: STABLE Disposition: Admitted to [facility] - Attestation Statements Document Initiated by Scribe: Yes Documenting Scribe: Mandeep Wu Provider For Whom Moonibbhavesh is Documenting (Include Credential): Maureen Alvarez MD Scribe Attestation: Mandeep Mera, scribed for Maureen Alvarez MD on 04/29/19 at 1356. Scribe Documentation Reviewed: Yes Provider Attestation: The documentation as recorded by the Mandeep harrington accurately reflects the service I personally performed and the decisions made by me, Maureen Alvarez MD Status of Scribe Document: Viewed
[2019-04-29] MEDS ORDERED: Lidocaine 2% VISCOUS* 15 ML UDC PO ONE (09:05)
[2019-04-29] MEDS ORDERED: Al Hydrox/Mg Hydrox/Simet LIQ* 30 ML UDC PO ONE (09:05)
[2019-04-29] MEDS ORDERED: Iohexol 300* (CONTRAST) 10 ML SDV IV ONE (09:28)
[2019-04-29] MEDS ORDERED: Thiamine IV 100 MG/ML VIAL (only for Bannana Bags !) IVPB ONE (10:34)
[2019-04-29 10:35] LABS: ABS Lymphocytes 0.9 10^3/ul (1.0-4.8); ABS Monocytes 0.8 10^3/ul (0-0.8); ABS Neutrophils 14.5 10^3/ul (1.5-7.7); Eosinophil % 0.1 %; Hematocrit 38 % (42-52); Lymphocyte % 5.6 %; Mean Corpuscular HGB Conc 34 g/dL (31-36); Mean Corpuscular Hemoglobin 34 pg (27-31); Mean Corpuscular Volume 98 fL (80-94); Mean Platelet Volume 7.3 fL (7.4-10.4); Platelet Count 229 10^3/uL (150-450); Red Blood Count 3.87 10^6 /uL (4.18-5.48); Red Cell Distribution Width 13 % (10-15); White Blood Count 16.3 10^3/uL (3.5-10.8)
[2019-04-29] MEDS ORDERED: Ondansetron INJ* 2 MG/ML VIAL IV PRN (10:36)
[2019-04-29] MEDS ORDERED: Thiamine INJ* 100 MG/ML 2 ML VIAL IM ONE (10:37)
[2019-04-29] MEDS ORDERED: Acetaminophen TAB* 325 MG PO PRN (10:37)
[2019-04-29] MEDS ORDERED: Morphine INJ* 2 MG/ML 1 ML SYRINGE (TWO MG - NEW SYRINGE VERSION) IV PRN (10:38)
[2019-04-29] MEDS ORDERED: Magnesium Sulfate 1 GM IV* 1 GM/100 ML BAG IV ONE (10:39)
[2019-04-29 10:47] LABS: Calcium 7.7 mg/dL (8.6-10.3); Chloride 106 mmol/L (101-111); Sodium 132 mmol/L (135-145)
[2019-04-29 10:53] LABS: ALT 67 U/L (7-52); Albumin/Globulin Ratio 1.7 (1-3); Alkaline Phosphatase 76 U/L (34-104); BUN/Creatinine Ratio 14.1 (8-20); Blood Urea Nitrogen 11 mg/dL (6-24); EGFR African American 150.6 (>60); EGFR Non-African American 124.5 (>60); Globulin 2.4 g/dL (2-4); Glucose 113 mg/dL (70-100); Total Protein 6.4 g/dL (6.4-8.9)
[2019-04-29 11:00] LABS: Anion Gap 14 mmol/L (2-11); CO2 Carbon Dioxide 12 mmol/L (22-32)
[2019-04-29] MEDS ORDERED: Thiamine IV 100 MG in NS 0.9% 50 ML Q24H IV ONE (11:00)
[2019-04-29] MEDS: Lactated Ringers 1000 ML Bag* 1,000 ML IV SCH ×2 (11:48→20:12)
[2019-04-29] MEDS: hydrOXYzine HCL TAB* 25 MG PO SCH ×2 (11:58→18:16)
[2019-04-29] MEDS: Sucralfate TAB* 1 GM PO SCH ×2 (11:58→16:43)
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
[2019-04-29] MEDS: LORazepam TAB(*) 1 MG PO SCH ×2 (14:30→18:35)
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
[2019-04-29] MEDS ORDERED: QUEtiapine TAB* 100 MG PO SCH (21:00)
[2019-04-29] MEDS: QUEtiapine XR TAB* 50 MG PO SCH (22:12)
[2019-04-30] MEDS: hydrOXYzine HCL TAB* 25 MG PO SCH ×4 (00:07→17:43)
[2019-04-30] MEDS: Lactated Ringers 1000 ML Bag* 1,000 ML IV SCH (02:57)
[2019-04-30 07:41] LABS: ABS Lymphocytes 1.1 10^3/ul (1.0-4.8); ABS Monocytes 0.4 10^3/ul (0-0.8); ABS Neutrophils 6.1 10^3/ul (1.5-7.7); Eosinophil % 0.3 %; Hematocrit 37 % (42-52); Hemoglobin 13.1 g/dL (14.0-18.0); Lymphocyte % 14.7 %; Mean Corpuscular HGB Conc 36 g/dL (31-36); Mean Corpuscular Hemoglobin 34 pg (27-31); Mean Corpuscular Volume 95 fL (80-94); Mean Platelet Volume 7.5 fL (7.4-10.4); Nucleated Red Blood Cells % 0.1; Platelet Count 216 10^3/uL (150-450); Red Blood Count 3.85 10^6 /uL (4.18-5.48); Red Cell Distribution Width 13 % (10-15); White Blood Count 7.7 10^3/uL (3.5-10.8)
[2019-04-30 07:59] LABS: Albumin 3.5 g/dL (3.2-5.2); Albumin/Globulin Ratio 1.6 (1-3); BUN/Creatinine Ratio 6.6 (8-20); Calcium 8.2 mg/dL (8.6-10.3); EGFR Non-African American 165.3 (>60); Globulin 2.2 g/dL (2-4); Magnesium 1.8 mg/dL (1.9-2.7); Potassium 3.5 mmol/L (3.5-5.0); Total Protein 5.7 g/dL (6.4-8.9)
[2019-04-30] MEDS: Folic Acid TAB* 1 MG PO SCH (08:29)
[2019-04-30] MEDS: Sucralfate TAB* 1 GM PO SCH ×3 (08:29→17:43)
[2019-04-30] MEDS: Multivitamins/Minerals TAB PO SCH (08:30)
[2019-04-30] MEDS: Thiamine TAB* 100 MG TAB PO SCH (08:30)
--- NOTE | 2019-04-30 08:54 | CONSULT ---
Consult Consult: Reason for consult: Suicidal ideation, alcohol use. CC " I have issues with alcohol " The patient reported have 9/10 motivation to stop drinking alcohol. He said " I dont need to drink to have fun." Patient reported that he will get by if he no longer took adderall. Patient denied smoking cannabis and is unsure why he tested positive because he said he doesnt typically use cannabis. Mental Status Exam APPEARANCE : 23 year old Male who appears stated age. Patient shows poor hygiene and grooming. BEHAVIOR: Cooperative , calm EYE CONTACT: Fair PSYCHOMOTOR ACTIVITY: No psychomotor agitation or retardation. MOVEMENTS: No abnormal movements observed. SPEECH : Normal rate, rhythm, volume and tone. MOOD : " Fine" AFFECT : Type is depressed, Range is restricted Mood Congruent THOUGHT PROCESS: Formulated and organized in a logical, linear goal directed manner. No flight of ideas, neologism (made up words) , perseveration , tangential , loose associations , or circumstantiality. THOUGHT CONTENT: no delusions, obsessions, phobias or preoccupations. PERCEPTION: No current auditory or visual hallucinations. Doesnt appear to be responding to internal cues. No evidence of depersonalization , de-realization, or illusions SUICIDALITY Recent suicidal ideation HOMICIDALITY Denied homicidal ideation, intent or plan. Insight/judgment: Poor insight and judgment ORIENTATION: Oriented to self, location, and time. Diagnosis Substance induced mood disorder, PTSD, Alcohol use disorder, Stimulant use disorder Assessment: 23 year old Male with history of alcohol abuse and stimulant abuse unable to sleep for several days with episode of agitation and suicidal ideation currently being treated on the medical floor. Plan #Admit to BSU once medical work up is completed and patient is determined to be medically fit for BSU. # Discontinue adderall, as this may be contributing to paranoia, lack of sleep and mood instability #Continue WAM for alcohol withdrawal #Continue 1:1 observation # Vitamin B12 level # Unable to leave AMA # Continue Seroquel 50 mg qhs. # Continue Thiamine 100mg PO daily # Declined outpatient and inpatient substance abuse rehabilitation options # Treatment options for alcohol use disorder offered he expressed some interest in vivitrol, will consider oral challenge when Liver enzymes trend down Laboratory Results - last 24 hr 04/29/19 04/29/19 04/29/19 10:25 10:25 13:51 WBC 16.3 H RBC 3.87 L Hgb 13.0 L Hct 38 L MCV 98 H MCH 34 H MCHC 34 RDW 13 Plt Count 229 MPV 7.3 L Neut % (Auto) 89.0 Lymph % (Auto) 5.6 Young % (Auto) 5.1 Eos % (Auto) 0.1 Baso % (Auto) 0.2 Absolute Neuts (auto) 14.5 H Absolute Lymphs (auto) 0.9 L Absolute Monos (auto) 0.8 Absolute Eos (auto) 0.0 Absolute Basos (auto) 0.0 Absolute Nucleated RBC 0.0 Nucleated RBC % 0.0 Sodium 132 L Potassium TNP 5.0 Chloride 106 Carbon Dioxide 12 L* Anion Gap 14 H BUN 11 Creatinine 0.78 Est GFR ( Amer) 150.6 Est GFR (Non-Af Amer) 124.5 BUN/Creatinine Ratio 14.1 Glucose 113 H Calcium 7.7 L Magnesium Total Bilirubin 1.00 AST TNP 107 H ALT 67 H Alkaline Phosphatase 76 Total Protein 6.4 Albumin 4.0 Globulin 2.4 Albumin/Globulin Ratio 1.7 04/30/19 04/30/19 07:28 07:28 WBC 7.7 RBC 3.85 L Hgb 13.1 L Hct 37 L MCV 95 H MCH 34 H MCHC 36 RDW 13 Plt Count 216 MPV 7.5 Neut % (Auto) 79.2 Lymph % (Auto) 14.7 Young % (Auto) 5.5 Eos % (Auto) 0.3 Baso % (Auto) 0.3 Absolute Neuts (auto) 6.1 Absolute Lymphs (auto) 1.1 Absolute Monos (auto) 0.4 Absolute Eos (auto) 0.0 Absolute Basos (auto) 0.0 Absolute Nucleated RBC 0.0 Nucleated RBC % 0.1 Sodium 136 Potassium 3.5 Chloride 106 Carbon Dioxide 23 Anion Gap 7 BUN 4 L Creatinine 0.61 L Est GFR ( Amer) 200.0 Est GFR (Non-Af Amer) 165.3 BUN/Creatinine Ratio 6.6 L Glucose 96 Calcium 8.2 L Magnesium 1.8 L Total Bilirubin 1.00 AST 100 H ALT 54 H Alkaline Phosphatase 64 Total Protein 5.7 L Albumin 3.5 Globulin 2.2 Albumin/Globulin Ratio 1.6
[2019-04-30] MEDS ORDERED: Pantoprazole IV* 40 MG IV SCH (09:00)
[2019-04-30] MEDS ORDERED: Amphetamine MIXED SALT TAB* 10 MG TAB PO SCH (09:00)
[2019-04-30] MEDS ORDERED: Lactated Ringers 1000 ML Bag* 1,000 ML IV SCH (09:39)
[2019-04-30] MEDS ORDERED: Potassium Chlor TAB* 20 MEQ TAB.ER PO ONE (09:44)
[2019-04-30] MEDS ORDERED: Magnesium Sulfate 1 GM IV* 1 GM/100 ML BAG IV ONE (10:00)
--- NOTE | 2019-04-30 16:36 | PN ---
Subjective Date of Service: 04/30/19 Interval History: patient reports that he is feeling better. Patient with lack of eye contact. reports that he has been feeling anxious at home. Denies any suicidal thoughts at this time. report mild generalized abd pain. Denies n/v/d. Tolerating po fluids staff at the bedside 1:1 Family History: Unchanged from Admission Social History: Unchanged from Admission Past Medical History: Unchanged from Admission Objective Active Medications: Acetaminophen (Tylenol Tab*) 650 mg PO Q4H PRN PRN Reason: PAIN-MILD/TEMP >/= 100.4 Last Admin: 04/29/19 18:26 Dose: 650 mg Dextrose (Dextrose 50% Vial 50 Ml*) 50 ml IV PUSH .FOR FS < 60 - SS PRN PRN Reason: FS < 60 Last Admin: 04/29/19 06:37 Dose: 50 ml Folic Acid (Folvite Tab*) 1 mg PO DAILY [facility] Last Admin: 04/30/19 08:29 Dose: 1 mg Hydroxyzine HCl (Atarax Tab*) 25 mg PO Q6HR [facility] Last Admin: 04/30/19 12:31 Dose: 25 mg Lorazepam (Ativan Tab(*)) 0 - 6 mg PO .PER [facility] PROTOCOL [facility]; Protocol Last Admin: 04/29/19 18:35 Dose: 1 mg Miscellaneous (Ativan Pyxis Gaitan) 1 ea N/A .ATIVAN IV GAITAN PRN PRN Reason: PYXIS GAITAN Morphine Sulfate (Morphine Inj (Syringe))*) 1 mg IV Q4H PRN PRN Reason: PAIN - SEVERE Multivitamins/Minerals (Theragran/Minerals Tab*) 1 tab PO DAILY [facility] Last Admin: 04/30/19 08:30 Dose: 1 tab Ondansetron HCl (Zofran Inj*) 4 mg IV Q4H PRN PRN Reason: NAUSEA/VOMITING Pantoprazole Sodium (Protonix Iv*) 40 mg IV DAILY [facility] Last Admin: 04/30/19 08:32 Dose: 40 mg Propranolol HCl (Inderal 10 Mg Tab) 10 mg PO BID [facility] Last Admin: 04/30/19 08:31 Dose: 10 mg Quetiapine Fumarate (Seroquel Xr Tab*) 50 mg PO BEDTIME [facility] Last Admin: 04/29/19 22:12 Dose: 50 mg Sucralfate (Carafate*) 1 gm PO AC [facility] Last Admin: 04/30/19 12:32 Dose: 1 gm Thiamine HCl (Vitamin B-1 Tab*) 100 mg PO DAILY [facility] Last Admin: 04/30/19 08:30 Dose: 100 mg Vital Signs - 8 hr 04/30/19 04/30/19 12:24 15:15 Temperature 97.5 F 98.0 F Pulse Rate 83 76 Respiratory 16 16 Rate Blood Pressure 122/74 124/78 (mmHg) O2 Sat by Pulse 99 100 Oximetry Oxygen Devices in Use Now: None Eyes: No Scleral Icterus Ears/Nose/Mouth/Throat: Clear Oropharnyx, Mucous Membranes Moist Neck: NL Appearance and Movements; NL JVP, Trachea Midline Respiratory: Symmetrical Chest Expansion and Respiratory Effort, Clear to Auscultation Cardiovascular: NL Sounds; No Murmurs; No JVD, No Edema Abdominal: NL Sounds; No Tenderness; No Distention Extremities: No Edema, No Clubbing, Cyanosis Skin: No Rash or Ulcers Neurological: Alert and Oriented x 3 Nutrition: Taking PO's Result Diagrams: 04/30/19 07:28 04/30/19 07:28 Assess/Plan/Problems-Billing Assessment: Mr. Jimenez is a 24 y.o male with a past medical history of ADHD, suicidal ideation who presented to the ER with suicidal ideation, intoxication and metabolic acidosis for vomiting and dehydrations. - Patient Problems (1) Suicidal ideation Current Visit: Yes Status: Acute Code(s): R45.851 - SUICIDAL IDEATIONS SNOMED Code(s): 1665471 Comment: management per Psych (2) Metabolic acidosis Current Visit: Yes Status: Acute Code(s): E87.2 - ACIDOSIS SNOMED Code(s) : 32637597 Comment: likely related to dehydration - given IVF overnight - now resolved - patient now tolerating po fluids (3) Dehydration Current Visit: Yes Status: Acute Code(s): E86.0 - DEHYDRATION SNOMED Code( s): 68843282 Comment: Patient vomiting - contributing to his dehydration - given IVF - now tolerating po fluids - will advance diet (4) DVT prophylaxis Current Visit: Yes Status: Acute Code(s): Z29.9 - ENCOUNTER FOR PROPHYLACTIC MEASURES, UNSPECIFIED SNOMED Code(s): 434559403 Comment: ambulation (5) Substance or medication-induced depressive disorder Current Visit: No Status: Acute Code(s): F19.94 - OTH PSYCHOACTIVE SUBSTANCE USE, UNSP W MOOD DISORDER; F32.89 - OTHER SPECIFIED DEPRESSIVE EPISODES SNOMED Code(s): 22764031 Comment: hx of ETOH abuse - no sign of withdrawal - patient is not hypertensive or tachycardic - not scoring on WAM (6) Full code status Current Visit: Yes Status: Acute Code(s): Z78.9 - OTHER SPECIFIED HEALTH STATUS SNOMED Code(s): 596624835 Status and Disposition: transfer to [facility]
[2019-04-30] MEDS: QUEtiapine XR TAB* 50 MG PO SCH (21:23)
[2019-04-30] MEDS ORDERED: Al Hydrox/Mg Hydrox/Simet LIQ* 30 ML UDC PO PRN (21:40)
[2019-05-01] MEDS: hydrOXYzine HCL TAB* 25 MG PO SCH ×4 (00:11→17:51)
[2019-05-01 07:19] LABS: HDL Cholesterol 78.4 mg/dL
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
[2019-05-01] MEDS: Sucralfate TAB* 1 GM PO SCH ×3 (09:23→16:53)
[2019-05-01] MEDS: Multivitamins/Minerals TAB PO SCH (10:28)
[2019-05-01] MEDS: Thiamine TAB* 100 MG TAB PO SCH (10:28)
[2019-05-01] MEDS: Folic Acid TAB* 1 MG PO SCH (10:28)
--- NOTE | 2019-05-01 17:05 | TRS ---
CC: [facility]; Amrita Aguero NP * TRANSFER SUMMARY: DATE OF ADMISSION: 04/29/19 DATE OF TRANSFER: 04/30/19 PROVIDER: Cyndi Jonas NP PRIMARY PSYCHIATRIST: Amrita Aguero NP PRIMARY CARE PROVIDER: [facility]. ATTENDING PHYSICIAN WHILE IN THE HOSPITAL: Dr. Shauna Savage * (dictated by Cyndi Jonas NP). TRANSFER DIAGNOSES: 1. Suicidal ideation. 2. Metabolic acidosis, resolved. 3. Dehydration, resolved. 4. Vomiting, resolved. SECONDARY DIAGNOSES: 1. Anxiety. 2. Attention deficit disorder. 3. History of suicidal ideation, but no attempt. 4. Alcohol abuse. MEDICATIONS: Continued medications: 1. Acetaminophen 650 mg p.o. q.4 hours as needed. 2. Maalox 30 mL q.4 hours as needed. 3. Folic acid 1 mg p.o. daily. 4. Hydroxyzine 25 mg p.o. q.6 hours. 5. Lorazepam p.o. as needed. 6. Multivitamin 1 tab p.o. daily. 7. Propranolol 10 mg p.o. b.i.d. 8. Seroquel 50 mg at bedtime. 9. Carafate 1 g p.o. a.c. 10. Thiamine 100 mg p.o. daily. ALLERGIES: No known drug allergies. HISTORY OF PRESENT ILLNESS AND HOSPITAL COURSE: Mr. Jimenez is a 24-year-old male with a past medical history significant for anxiety; ADHD; history of suicidal ideation, no attempt; and alcohol abuse, who presented to the hospital intoxicated with alcohol, stating he wanted to kill himself. On presentation to the emergency room, the patient's alcohol level was 128. His metabolic panel showed carbon dioxide level below 7. His ABG showed mild metabolic acidosis with a pH of 7.3. The patient was having episodes of nausea and vomiting. The patient did receive IV fluids in the emergency room, which improved his electrolyte panel. While in the emergency room, the patient did sober up. He denied any suicidal ideation. He complains of racing thoughts. He was placed on overnight observation for rehydration, nausea, and vomiting, and Psychiatry was asked to see the patient in consultation. During the hospitalization, he recoeved IVF overnight , repeat labs this AM are at baseline. The patient was seen by Psychiatry, who recommended admission to the behavioral health unit for further management of his suicidal ideation and racing thoughts. Today, on the day of transfer, the patient is tolerating p.o. fluids without nausea or vomiting. He has been seen by Psychiatry, who has recommended inpatient admission on the mental health unit. At this time, his electrolyte profile has returned to baseline and the patient is stable for transfer to the mental health unit. TRANSFER PLAN: The patient will be transferred to the mental health unit for further management of his suicidal ideation. That management will be per psychiatry team. 1. Metabolic acidosis is resolved. 2. Vomiting, resolved. CONDITION ON TRANSFER: Stable. DISPOSITION ON TRANSFER: Mental health unit at [facility] TIME SPENT: Time spent on this transfer was 30 minutes, greater than half that time was spent at the bedside discussing transfer plans with the patient and implementing those plans. I have discussed this with my attending, Dr. Shauna Savage; she is in agreement with my plan. CYNDI JONAS, SALVAGE LABORER [id number]/CPS #: [id number] TIKI
[2019-05-01] MEDS: QUEtiapine XR TAB* 50 MG PO SCH (20:15)
[2019-05-02] MEDS: hydrOXYzine HCL TAB* 25 MG PO SCH ×3 (00:14→21:47)
[2019-05-02 08:51] LABS: ALT 55 U/L (7-52); AST 72 U/L (13-39)
[2019-05-02] MEDS: Sucralfate TAB* 1 GM PO SCH ×3 (09:27→18:14)
[2019-05-02] MEDS: Folic Acid TAB* 1 MG PO SCH (09:28)
[2019-05-02] MEDS: Thiamine TAB* 100 MG TAB PO SCH (09:28)
[2019-05-02] MEDS: Multivitamins/Minerals TAB PO SCH (09:28)
[2019-05-02] MEDS ORDERED: Naltrexone TAB* 50 MG TAB PO ONE ×2 (11:00→11:10)
--- NOTE | 2019-05-02 11:25 | PN ---
BSU: Group Therapy Note - Service Type Service Type: 15073 Group Psychotherapy - Cognitive Behavioral Group Therapy ( CBT):Patient attended CBT programming this morning and presented with flat affect that did not vary with discussion. Although responsive to direct prompts to respond to questions, patient did not engage in spontaneous conversation.
--- NOTE | 2019-05-02 12:25 | PN ---
Subjective - Subjective Date of Service: 05/02/19 Service Type: 78036 Hosp care 35 min high complexity Subjective: Nursing Report: Patient was visible on unit, no behavioral incidents. Slept overnight. He is attending group activities. CC: " I want to stop drinking" Patient was seen and evaluated in the common room with social services technician Celeste. Patient 01/23 motivated to stop drinking. He acknowledged that he wont be able to do anything in his life if he doesnt stop drinking. He is open to some outpatient substance abuse resources. He reported having adequate appetite and sleep. The patient reports attending and participating in day groups. Per nursing no behavioral issues or overnight events reported. Patient reported that he is tolerating medications without side effects. Patient denied tremor, sweating, seizures. Objective - General Observations Appearance: Disheveled Appears Stated Age: Yes Stature: WNL Posture: Slumped Eye Contact: Average Behavior/Activity: Slowed - Interaction Observations Attitude Towards Examiner: Cooperative Stated Mood: Anxious Affect: Restricted Speech Pattern/Tone: Quiet Volume Thought Process: Coherent Perception: WNL Thought Content: Depressive Hallucination Type: None Delusion Type: None - Cognitive Function Orientation: A&O x 4 Level of Consciousness: Awake - Medication Compliance Cooperative with Inpatient Medication Regimen: Yes - Group Participation Participates in Group Activities: Yes Assessment - Assessment Merits Inpatient Hospitalization: For Immediate Safety Clinical Impression: 24 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 Plan - Plan Treatment Plan: Name: HEATHER GUERRA Birthdate: 1995 [id number] #Q30 minute observation with staff pass and computer # The patient requires psychiatric inpatient admission at this time to assure safety, receive treatment and work toward stabilization. # Obtain collateral information once release is signed. # Collaboration with Social Work # Discontinued adderall, as this may be contributing to paranoia, lack of sleep and mood instability and contacted left message with adverse outcomes of medication with outpatient provider # Discontinue WAM protocol # Continue Seroquel 50 mg qhs. # Continue Thiamine 100mg PO daily # Follow AST/ ALT labs # PTSD Trauma focused CBT # Declined inpatient substance abuse rehabilitation option. Will be provided with outpatient substance abuse information. # Patient will receive vivitrol IM today next due 05/30/19 # Started oral Naltrexone challenge without complications. Liver enzymes trending down Tentative Discharge Sunday ABG pH 7.30 (7.35-7.45) L 04/29/19 08:37 ABG HCO3 14.1 mmol/L (19-31) L 04/29/19 08:37 Sodium 136 mmol/L (135-145) 04/30/19 07:28 Potassium 3.5 mmol/L (3.5-5.0) 04/30/19 07:28 BUN 4 mg/dL (6-24) L 04/30/19 07:28 Creatinine 0.61 mg/dL (0.67-1.17) L 04/30/19 07:28 Hemoglobin A1c 5.1 % (4.0-5.6) 05/01/19 06:38 Calcium 8.2 mg/dL (8.6-10.3) L 04/30/19 07:28 Magnesium 1.8 mg/dL (1.9-2.7) L 04/30/19 07:28 AST 72 U/L (13-39) H 05/02/19 08:13 ALT 55 U/L (7-52) H 05/02/19 08:13 Triglycerides 89 mg/dL 05/01/19 06:38 Cholesterol 153 mg/dL 05/01/19 06:38 LDL Cholesterol 57 mg/dL 05/01/19 06:38 Continued Medication Management: Continue Outpt Medication Medications: Current Medications Acetaminophen (Tylenol Tab*) 650 mg PO Q4H PRN PRN Reason: PAIN-MILD/TEMP >/= 100.4 Last Admin: 04/29/19 18:26 Dose: 650 mg Al Hydrox/Mg Hydrox/Simethicone (Maalox Plus*) 30 ml PO Q4H PRN PRN Reason: INDIGESTION Last Admin: 05/01/19 21:29 Dose: 30 ml Folic Acid (Folvite Tab*) 1 mg PO DAILY [facility] Last Admin: 05/02/19 09:28 Dose: 1 mg Hydroxyzine HCl (Atarax Tab*) 25 mg PO BID [facility] Multivitamins/Minerals (Theragran/Minerals Tab*) 1 tab PO DAILY [facility] Last Admin: 05/02/19 09:28 Dose: 1 tab Naltrexone HCl (Vivitrol Inj) 380 mg IM ONCE ONE Stop: 05/02/19 14:01 Propranolol HCl (Inderal 10 Mg Tab) 10 mg PO BID [facility] Last Admin: 05/02/19 09:28 Dose: 10 mg Quetiapine Fumarate (Seroquel Xr Tab*) 50 mg PO BEDTIME [facility] Last Admin: 05/01/19 20:15 Dose: 50 mg Sucralfate (Carafate*) 1 gm PO AC [facility] Last Admin: 05/02/19 11:06 Dose: 1 gm Thiamine HCl (Vitamin B-1 Tab*) 100 mg PO DAILY [facility] Last Admin: 05/02/19 09:28 Dose: 100 mg - Discharge Plan Discharge Plan: Inpatient Hospitalization
[2019-05-02] MEDS ORDERED: Naltrexone INJ 380 MG IM ONE (14:00)
[2019-05-02] MEDS: QUEtiapine XR TAB* 50 MG PO SCH (21:47)
[2019-05-03] MEDS: Multivitamins/Minerals TAB PO SCH (09:08)
[2019-05-03] MEDS: Thiamine TAB* 100 MG TAB PO SCH (09:08)
[2019-05-03] MEDS: Folic Acid TAB* 1 MG PO SCH (09:09)
[2019-05-03] MEDS: Sucralfate TAB* 1 GM PO SCH ×3 (09:09→16:25)
[2019-05-03] MEDS: hydrOXYzine HCL TAB* 25 MG PO SCH ×2 (09:09→22:04)
[2019-05-03] MEDS: QUEtiapine XR TAB* 50 MG PO SCH (22:04)
[2019-05-04 07:58] LABS: ALT 95 U/L (7-52); AST 96 U/L (13-39)
[2019-05-04] MEDS: hydrOXYzine HCL TAB* 25 MG PO SCH ×2 (11:10→21:22)
[2019-05-04] MEDS: Folic Acid TAB* 1 MG PO SCH (11:10)
[2019-05-04] MEDS: Multivitamins/Minerals TAB PO SCH (11:10)
[2019-05-04] MEDS: Thiamine TAB* 100 MG TAB PO SCH (11:11)
[2019-05-04] MEDS: Sucralfate TAB* 1 GM PO SCH ×3 (11:11→16:23)
--- NOTE | 2019-05-04 19:13 | PN ---
Subjective - Subjective Date of Service: 05/04/19 Service Type: 12560 Hosp care 25 min moderate complexity Subjective: Magnus says he is fine and attribute his re-hospitalization to excessive drinking which he is going to stop. Per unit staffs Magnus has been fine and has improved significantly improved. His Liver enzymes remain high. Denies SI, hallucinations or delusions. Objective - General Observations Appearance: Disheveled Appears Stated Age: Yes Stature: WNL Posture: WNL Eye Contact: Average Behavior/Activity: WNL - Interaction Observations Attitude Towards Examiner: Cooperative Stated Mood: Dysphoric Affect: Restricted Speech Pattern/Tone: Clear, Normal Volume Thought Process: Coherent Perception: WNL Thought Content: WNL Hallucination Type: Denies Delusion Type: Denies - Cognitive Function Orientation: A&O x 4 Level of Consciousness: Awake, Alert, Appropriate Cognition: WNL Estimated Intelligence: Normal Insight: Mostly Blames Others for Problems Judgment Within Normal Limits: No Ability to Make Reasonable Decisions: Moderately Impaired - Medication Compliance Cooperative with Inpatient Medication Regimen: Yes - Group Participation Participates in Group Activities: Partial Assessment - Assessment Merits Inpatient Hospitalization: For Immediate Safety, For Stabilization, Pending Safe DC Plan Clinical Impression: 24 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 Plan - Plan Treatment Plan: Name: MAGNUS GUERRA Birthdate: 1995 [id number] #Q30 minute observation with staff pass and computer # The patient requires psychiatric inpatient admission at this time to assure safety, receive treatment and work toward stabilization. # Obtain collateral information once release is signed. # Collaboration with Social Work # Discontinued adderall, as this may be contributing to paranoia, lack of sleep and mood instability and contacted left message with adverse outcomes of medication with outpatient provider # Discontinue WAM protocol # Continue Seroquel 50 mg qhs. # Continue Thiamine 100mg PO daily # Follow AST/ ALT labs # PTSD Trauma focused CBT # Declined inpatient substance abuse rehabilitation option. Will be provided with outpatient substance abuse information. # Patient will receive vivitrol IM today next due 05/30/19 # Started oral Naltrexone challenge without complications. Liver enzymes trending down Tentative Discharge Sunday ABG pH 7.30 (7.35-7.45) L 04/29/19 08:37 ABG HCO3 14.1 mmol/L (19-31) L 04/29/19 08:37 Sodium 136 mmol/L (135-145) 04/30/19 07:28 Potassium 3.5 mmol/L (3.5-5.0) 04/30/19 07:28 BUN 4 mg/dL (6-24) L 04/30/19 07:28 Creatinine 0.61 mg/dL (0.67-1.17) L 04/30/19 07:28 Hemoglobin A1c 5.1 % (4.0-5.6) 05/01/19 06:38 Calcium 8.2 mg/dL (8.6-10.3) L 04/30/19 07:28 Magnesium 1.8 mg/dL (1.9-2.7) L 04/30/19 07:28 AST 72 U/L (13-39) H 05/02/19 08:13 ALT 55 U/L (7-52) H 05/02/19 08:13 Triglycerides 89 mg/dL 05/01/19 06:38 Cholesterol 153 mg/dL 05/01/19 06:38 LDL Cholesterol 57 mg/dL 05/01/19 06:38 Continued Medication Management: Continue Outpt Medication Medications: Current Medications Acetaminophen (Tylenol Tab*) 650 mg PO Q4H PRN PRN Reason: PAIN-MILD/TEMP >/= 100.4 Last Admin: 04/29/19 18:26 Dose: 650 mg Al Hydrox/Mg Hydrox/Simethicone (Maalox Plus*) 30 ml PO Q4H PRN PRN Reason: INDIGESTION Last Admin: 05/01/19 21:29 Dose: 30 ml Folic Acid (Folvite Tab*) 1 mg PO DAILY [facility] Last Admin: 05/04/19 11:10 Dose: 1 mg Hydroxyzine HCl (Atarax Tab*) 25 mg PO BID [facility] Last Admin: 05/04/19 11:10 Dose: 25 mg Multivitamins/Minerals (Theragran/Minerals Tab*) 1 tab PO DAILY [facility] Last Admin: 05/04/19 11:10 Dose: 1 tab Propranolol HCl (Inderal 10 Mg Tab) 10 mg PO BID [facility] Last Admin: 05/04/19 11:10 Dose: 10 mg Quetiapine Fumarate (Seroquel Xr Tab*) 100 mg PO BEDTIME [facility] Last Admin: 05/03/19 22:04 Dose: 100 mg Sucralfate (Carafate*) 1 gm PO AC [facility] Last Admin: 05/04/19 16:23 Dose: 1 gm Thiamine HCl (Vitamin B-1 Tab*) 100 mg PO DAILY [facility] Last Admin: 05/04/19 11:11 Dose: 100 mg - Discharge Plan Discharge Plan: Outpatient Follow Up Outpatient Program: Naomie Swift [facility]
[2019-05-04] MEDS: QUEtiapine XR TAB* 50 MG PO SCH (21:23)
[2019-05-05] MEDS: Sucralfate TAB* 1 GM PO SCH ×2 (08:21→11:32)
[2019-05-05 09:02] VITALS: BP 121/74
[2019-05-05] MEDS: Folic Acid TAB* 1 MG PO SCH (09:51)
[2019-05-05] MEDS: hydrOXYzine HCL TAB* 25 MG PO SCH (09:52)
[2019-05-05] MEDS: Multivitamins/Minerals TAB PO SCH (09:52)
[2019-05-05] MEDS: Thiamine TAB* 100 MG TAB PO SCH (09:52)
[2019-05-05 10:12] LABS: ALT 138 U/L (7-52); AST 126 U/L (13-39)
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
== END 2019-05-05 12:00 | disposition home or self-care (01) | DRG 775 ==
LOC: ED 02:54 → MED 10:36 → OBSVTOIN 04-30 16:49 → BSU 04-30 18:40
PROVIDERS: ADMIT Internal Medicine; ATTEND Psychiatry & Neurology Psychiatry
PROC: GZHZZZZ Group Psychotherapy (ICD-10-PCS; principal; 2019-05-02)
DX: F10.94 Alcohol use, unspecified with alcohol-induced mood disorder (principal); R45.851 Suicidal ideations; F15.94 Other stimulant use, unspecified with stimulant-induced mood disorder; F43.10 Post-traumatic stress disorder, unspecified; E86.0 Dehydration; F32.9 Major depressive disorder, single episode, unspecified; Z79.899 Other long term (current) drug therapy; Z88.8 Allergy status to other drugs, medicaments and biological substances; Z72.89 Other problems related to lifestyle
CPT/HCPCS: 36415; 74177; 80048; 80053; 80061; 80307; 80320; 80329; 81003; 81015; 82607; 82803; 83036; 83690; 83735; 84443; 84450; 84460; 84550; 85025; 87086; 90853; 93005; 99222; 99232; 99233; 99238; 99284; A9270-GY; G0480; J2060; J2405; J3411; J3475; J3480; Q9967

== ENCOUNTER 2020-08-03 06:49 | Inpatient (IN) ==
[2020-08-03 07:20] LABS: ABS Lymphocytes 1.5 10^3/ul (1.0-4.8); ABS Monocytes 0.5 10^3/ul (0-0.8); ABS Neutrophils 3.4 10^3/ul (1.5-7.7); Hematocrit 39 % (42-52); Hemoglobin 13.3 g/dL (14.0-18.0); Lymphocyte % 27.9 %; Mean Corpuscular HGB Conc 34 g/dL (31-36); Mean Corpuscular Hemoglobin 32 pg (27-31); Mean Corpuscular Volume 94 fL (80-94); Mean Platelet Volume 7.1 fL (7.4-10.4); Nucleated Red Blood Cells % 0.3; Platelet Count 231 10^3/uL (150-450); Red Blood Count 4.09 10^6 /uL (4.18-5.48); Red Cell Distribution Width 14 % (10-15); White Blood Count 5.5 10^3/uL (3.5-10.8)
[2020-08-03 07:34] LABS: ALT 59 U/L (7-52); AST 59 U/L (13-39); Albumin 4.3 g/dL (3.2-5.2); Albumin/Globulin Ratio 1.8 (1-3); Alkaline Phosphatase 93 U/L (34-104); Anion Gap 18 mmol/L (2-11); BUN/Creatinine Ratio 11.3 (8-20); Blood Urea Nitrogen 8 mg/dL (6-24); CO2 Carbon Dioxide 19 mmol/L (22-32); Calcium 8.9 mg/dL (8.6-10.3); Chloride 98 mmol/L (101-111); Creatine Kinase 405 U/L (10-223); EGFR African American 166.4 (>60); EGFR Non-African American 137.5 (>60); Globulin 2.4 g/dL (2-4); Glucose 97 mg/dL (70-100); Potassium 3.3 mmol/L (3.5-5.0); Sodium 135 mmol/L (135-145); Total Protein 6.7 g/dL (6.4-8.9)
[2020-08-03 07:59] LABS: Alcohol, S 159 mg/dL (<10); Salicylate < 2.50 mg/dL (<30)
[2020-08-03 08:14] LABS: Acetaminophen < 15 mcg/mL
[2020-08-03 08:15] LABS: TSH Ultra Thyroid Stim Horm 0.29 mcIU/mL (0.34-5.60)
[2020-08-03 09:45] LABS: Urine Appearance Cloudy; Urine Bilirubin Negative (Negative); Urine Blood 2+ (Negative); Urine Color Yellow; Urine Glucose 1+(50 mg/dL) (Negative); Urine Ketones 2+ (Negative); Urine Nitrite Negative (Negative); Urine Protein 1+(30 mg/dL) (Negative); Urine Urobilinogen Negative (Negative)
[2020-08-03 09:49] LABS: Urine Bacteria Absent (Absent); Urine Red Blood Cell Trace(0-2/hpf) (Absent); Urine White Blood Cell Trace(0-5/hpf) (Absent)
[2020-08-03 10:09] LABS: Urine Benzodiazepine Screen None Detected (None Detect); Urine Cannabinoids Screen None Detected (None Detect); Urine Opiates Screen None Detected (None Detect)
[2020-08-03] MEDS ORDERED: Potassium Chlor 20 meq TAB.ER PO ONE (10:17)
[2020-08-03 11:04] LABS: Troponin I 0.01 ng/mL (<0.03)
[2020-08-03] MEDS ORDERED: Al Hydrox/Mg Hydrox/Simet LIQ 30 ML UDC PO PRN (11:05)
[2020-08-03] MEDS: Multivitamins/Minerals TAB PO SCH (16:20)
[2020-08-04 08:10] LABS: HDL Cholesterol 100.5 mg/dL
[2020-08-04] MEDS: Multivitamins/Minerals TAB PO SCH (10:31)
[2020-08-04 10:58] LABS: Free T4 0.73 ng/dL (0.61-1.12)
[2020-08-04 12:01] LABS: Magnesium 1.9 mg/dL (1.9-2.7)
[2020-08-04] MEDS ORDERED: Potassium Chlor 20 meq TAB.ER PO ONE (13:20)
[2020-08-05] MEDS: Multivitamins/Minerals TAB PO SCH (09:22)
[2020-08-05 13:36] LABS: Albumin 4.2 g/dL (3.2-5.2); Albumin/Globulin Ratio 1.7 (1-3); Calcium 9.2 mg/dL (8.6-10.3); EGFR African American 169.1 (>60); EGFR Non-African American 139.8 (>60); Globulin 2.5 g/dL (2-4); Magnesium 1.7 mg/dL (1.9-2.7); Total Bilirubin 0.3 mg/dL (0.2-1.0); Total Protein 6.7 g/dL (6.4-8.9)
[2020-08-06 08:20] LABS: ABS Eosinophils 0.1 10^3/ul (0-0.6); ABS Lymphocytes 2.1 10^3/ul (1.0-4.8); ABS Monocytes 0.4 10^3/ul (0-0.8); ABS Neutrophils 5.4 10^3/ul (1.5-7.7); Eosinophil % 0.7 %; Hematocrit 44 % (42-52); Hemoglobin 14.7 g/dL (14.0-18.0); Lymphocyte % 26.5 %; Mean Corpuscular HGB Conc 34 g/dL (31-36); Mean Corpuscular Hemoglobin 32 pg (27-31); Mean Corpuscular Volume 96 fL (80-94); Mean Platelet Volume 7.7 fL (7.4-10.4); Nucleated Red Blood Cells % 0.1; Platelet Count 278 10^3/uL (150-450); Red Blood Count 4.58 10^6 /uL (4.18-5.48); Red Cell Distribution Width 14 % (10-15); White Blood Count 8.1 10^3/uL (3.5-10.8)
[2020-08-06] MEDS: Multivitamins/Minerals TAB PO SCH (08:31)
[2020-08-06 08:32] LABS: Calcium 9.5 mg/dL (8.6-10.3); Magnesium 1.9 mg/dL (1.9-2.7); Potassium 4.3 mmol/L (3.5-5.0)
[2020-08-06 08:37] LABS: EGFR African American 174.9 (>60); EGFR Non-African American 144.5 (>60)
[2020-08-07] MEDS: Multivitamins/Minerals TAB PO SCH (09:43)
[2020-08-08] MEDS: Multivitamins/Minerals TAB PO SCH (10:04)
[2020-08-09] MEDS: Multivitamins/Minerals TAB PO SCH (08:38)
[2020-08-09] MEDS ORDERED: LORazepam PO 0-6 for WAM protocol PO SCH (12:00)
[2020-08-10] MEDS: Multivitamins/Minerals TAB PO SCH (10:18)
[2020-08-10] MEDS ORDERED: Naltrexone INJ 380 MG IM ONE (13:49)
[2020-08-11] MEDS: Multivitamins/Minerals TAB PO SCH (09:09)
[2020-08-12 07:49] VITALS: BP 123/74
[2020-08-12] MEDS: Multivitamins/Minerals TAB PO SCH (09:01)
== END 2020-08-12 10:30 | DRG 754 ==
LOC: ED 06:49 → BSU 13:54
PROVIDERS: ADMIT Psychiatry & Neurology Psychiatry; ATTEND Psychiatry & Neurology Psychiatry